=== PATIENT | female | born 1940 | race Caucasian/White ===

== ENCOUNTER 2024-06-20 14:28 | Inpatient (IN) | payer OTHER, SELFPAY ==
[2024-06-20] VITALS (32 sets, daily range): BP systolic 81–174; BP diastolic 30–99; PULSE 2–109; BMI 22.7; BMI 22.3
--- NOTE | 2024-06-20 09:19 | EDRN ---
Olya Madera PA in to see pt at this time.
--- NOTE | 2024-06-20 09:30 | ED.GENMED ---
History of Present Illness
<Av Madera PA-C - Last Filed: 06/20/24 13:44>
General
Chief Complaint: Breathing Problem
Source: patient and ambulance crew
Time Seen by Provider: 06/20/24 09:17
History of Present Illness
History of Present Illness:
83-year-old female with past medical history of atrial fibrillation, valvular disease, known CAD, hypertension, hyperlipidemia, azs-gonrgiz-nryltztvk diabetes and self-reported COPD presenting to the emergency department for evaluation of shortness
of breath which has been gradually worsening over the last few days, worse today prompting her to call EMS who noted the patient was satting at 92% room air on their arrival, placed her on 2 L via nasal cannula and brought her to the ER for further
evaluation. Patient believes she has been going in and out of atrial fibrillation noting she has experienced palpitations but is denying any chest pain, orthopnea, PND, lower extremity edema, cough, fevers or any other infectious symptoms. She
does note she attempted use with her inhaler around 8 AM this morning with no relief. Social history was noted for her passing away earlier this week.
Past History
<Av Madera PA-C - Last Filed: 06/20/24 13:44>
Past History
ED Past Medical History: Arrthythmia, Asthma, CAD, HTN, Hypercholesterolemia, NIDDM and Valvular disease
ED Past Surgical History: Cardiac and Cholecystectomy
Social History
Tobacco: Non-smoker
Alcohol: None
Drug: None
Personal:
Living: alone
Review of Systems
<Av Madera PA-C - Last Filed: 06/20/24 13:44>
Review of Systems
All Other Systems: ROS reviewed and negative except as documented in HPI and ROS
Phy Exam
<Av Madera PA-C - Last Filed: 06/20/24 13:44>
Physical Exam
Physical Exam:
GENERAL: Alert , in no apparent distress
HEAD: NCAT
EYE: conjunctiva clear
NECK: Supple
ENT: o/p clr, mmm.
CARDIAC: Regular rate and rhythm
LUNGS: diminished lung sounds, scattered wheezing, 1 sentence dyspneic. 91% RA on arrival, currently on 2L NC at 96-97%.
NEUROLOGICAL: Alert and oriented
SKIN: Warm and dry, skin intact.
MUSCULOSKELETAL: well perfused. no edema
PSYCH: Normal and appropriate interaction.
Scores
<Av Madera PA-C - Last Filed: 06/20/24 13:44>
Heart Failure Risk
Heart Failure Risk Score: Not Applicable
Heart Score for Chest Pain Patients
STEMI patient?: Not applicable
Withdrawal Assessment of Alcohol
Withdrawal Assessment Completed?: Not applicable
Course
<Av Madera PA-C - Last Filed: 06/20/24 13:44>
Orders/Labs/Results
Orders:
Orders
06/20/24 09:17
Electrocardiogram (*1) Urgent
Reason for Study: Chest Pain
Cardiac Monitoring- Treatment ONCE
EKG- Treatment ONCE
06/20/24 09:26
Ipratropium/Albuterol Sulfate [Duoneb] 3 ml INH R NOW ONE
06/20/24 09:27
CR Chest - 2 Views Urgent
Comment:
Reason For Exam: SOB
06/20/24 09:31
BNP [NT-proBNP] Urgent
Complete Blood Count/With Diff Urgent
Comprehensive Metabolic Panel Urgent
Prothrombin Time Urgent
Troponin I Urgent
06/20/24 09:40
MethylPREDNISolone PF [Solu-Medrol Pf] 40 mg IV NOW STA
06/20/24 10:21
Aspirin Chewable [Low Strength Aspirin] 324 mg PO NOW STA
06/20/24 10:40
COVID-19 Antigen Urgent
Source: Nasal Swab
Influenza A+B Rapid Molecular Urgent
ADDI Source: Nasal Swab
Specimen Description:
06/20/24 10:43
Aztreonam [Azactam] 500 mg Syringe [Syringe-Pump] 0 ml IV NOW
06/20/24 10:59
Lactic Acid Q4H
Comment: CANCEL 2nd LACTIC ACID IF 1st LACTIC ACID IS LESS THAN 2
Blood Culture Q30M
ADDI Source: Blood/Venous
Specimen Description:
06/20/24 11:05
Vancomycin [Vancocin] 1,500 mg 0.9% Sodium Chloride 500 ml [Nss] 500 ml IV NOW
06/20/24 11:19
Aztreonam [Azactam] 500 mg Syringe [Syringe-Pump] 0 ml IV NOW
06/20/24 11:20
Blood Culture Q30M
ADDI Source: Blood/Venous
Specimen Description:
06/20/24 13:26
Admit/Transfer Patient As Directed
Co-Sign Provider:
Level of Care: Inpatient admission
Assign to:: IVU
Physician / Group: Hospitalist
Diagnosis: Heart attack, heart failure, kidney failure
Reason for Hospitalization: Heart attack, heart failure, kidney failure
Expected length of stay greater than two midnights?: Yes
ELOS- Estimated Length of Stay in days: 5
I certify the patient meets the requirements for IP care: Yes
06/20/24 13:27
PRN Pain Medication Management As Directed
May give lesser potent ordered pain med per pt: Yes
preference::
Protocol:: Medication orders for pain may be administered in a
manner that supports deferring to patient preference
when the pt is:
- Requesting an ordered lesser potent pain medication.
Least to most potent pain medications are defined
as: acetaminophen < NSAID < tramadol < opioids
(morphine, oxycodone, hydromorphone).
- Requesting a lesser dose of the same medication IF
ORDERED.
- Requesting a less intrusive route of administration
if both routes are prescribed by the provider (PO <
IV).
06/20/24 13:28
Code Status As Directed
Resuscitation Status: Limited DNR
Limited DNR: -No intubation
06/20/24 13:31
Echo 2D MMode Color/Doppler Stat
Reason for Study: chest pain
06/20/24 13:45
Troponin I Urgent
06/20/24 13:48
Furosemide [Lasix] 40 mg IV NOW STA
06/20/24 13:49
Albuterol Nebs [Ventolin Nebules] 2.5 mg INH R NOW STA
06/20/24 13:53
Bipap [RESP] Urgent
Patient to use own unit?: No
Inspiratory Pressure (cm H2O): 14
Expiratory Pressure (cm H2O): 5
Abnormal Lab Results
06/20/24
09:31
WBC 13.3 H 10^3/uL
(4.8-10.8)
RBC 3.38 L 10^6/uL
(4.20-5.40)
Hgb 9.7 L g/dL
(12.0-16.0)
Hct 29.6 L %
(37.0-47.0)
MCHC 32.8 L g/dL
(33.0-37.0)
MPV 11.0 H fL
(7.4-10.4)
Abs Immat Gran (auto) 0.1 H 10^3/uL
(0-0.05)
Absolute Neuts (auto) 9.4 H 10^3/uL
(1.4-6.5)
Absolute Monos (auto) 0.9 H 10^3/uL
(0.1-0.6)
Lymphocytes % 18.7 L %
(20.5-51.1)
PT 30.0 H Sec
(11.4-14.6)
BUN 50 H mg/dl
(7-17)
Creatinine 1.9 H mg/dL
(0.6-1.0)
Glucose 100 H mg/dl
(70-99)
AST 84 H U/L
(14-36)
ALT 85 H U/L
(0-35)
Alkaline Phosphatase 157 H U/L
(38-126)
Troponin I 1.660 H* ng/ml
06/20/24 09:31
06/20/24 09:31
Vital Signs
Initial and Last Documented VS:
Initial Vital Signs
Temp Pulse Resp BP Pulse Ox
98 F 86 32 174/67 91
06/20/24 09:20 06/20/24 09:20 06/20/24 09:20 06/20/24 09:20 06/20/24 09:20
Last Documented Vital Signs
Temp Pulse Resp BP Pulse Ox
98 F 72 20 126/39 99
06/20/24 09:20 06/20/24 12:00 06/20/24 12:00 06/20/24 12:00 06/20/24 12:00
Aquatics Coordinator consulted with Physician
Aquatics Coordinator consulted with physician?: Yes
Name of Physician Consulted: Danie
<Herman Helton, DO - Last Filed: 06/20/24 14:02>
Orders/Labs/Results
Orders:
Orders
06/20/24 09:17
Electrocardiogram (*1) Urgent
Reason for Study: Chest Pain
Cardiac Monitoring- Treatment ONCE
EKG- Treatment ONCE
06/20/24 09:26
Ipratropium/Albuterol Sulfate [Duoneb] 3 ml INH R NOW ONE
06/20/24 09:27
CR Chest - 2 Views Urgent
Comment:
Reason For Exam: SOB
06/20/24 09:31
BNP [NT-proBNP] Urgent
Complete Blood Count/With Diff Urgent
Comprehensive Metabolic Panel Urgent
Prothrombin Time Urgent
Troponin I Urgent
06/20/24 09:40
MethylPREDNISolone PF [Solu-Medrol Pf] 40 mg IV NOW STA
06/20/24 10:21
Aspirin Chewable [Low Strength Aspirin] 324 mg PO NOW STA
06/20/24 10:40
COVID-19 Antigen Urgent
Source: Nasal Swab
Influenza A+B Rapid Molecular Urgent
ADDI Source: Nasal Swab
Specimen Description:
06/20/24 10:43
Aztreonam [Azactam] 500 mg Syringe [Syringe-Pump] 0 ml IV NOW
06/20/24 10:59
Lactic Acid Q4H
Comment: CANCEL 2nd LACTIC ACID IF 1st LACTIC ACID IS LESS THAN 2
Blood Culture Q30M
ADDI Source: Blood/Venous
Specimen Description:
06/20/24 11:05
Vancomycin [Vancocin] 1,500 mg 0.9% Sodium Chloride 500 ml [Nss] 500 ml IV NOW
06/20/24 11:19
Aztreonam [Azactam] 500 mg Syringe [Syringe-Pump] 0 ml IV NOW
06/20/24 11:20
Blood Culture Q30M
ADDI Source: Blood/Venous
Specimen Description:
06/20/24 13:26
Admit/Transfer Patient As Directed
Co-Sign Provider:
Level of Care: Inpatient admission
Assign to:: IVU
Physician / Group: Hospitalist
Diagnosis: Heart attack, heart failure, kidney failure
Reason for Hospitalization: Heart attack, heart failure, kidney failure
Expected length of stay greater than two midnights?: Yes
ELOS- Estimated Length of Stay in days: 5
I certify the patient meets the requirements for IP care: Yes
06/20/24 13:27
PRN Pain Medication Management As Directed
May give lesser potent ordered pain med per pt: Yes
preference::
Protocol:: Medication orders for pain may be administered in a
manner that supports deferring to patient preference
when the pt is:
- Requesting an ordered lesser potent pain medication.
Least to most potent pain medications are defined
as: acetaminophen < NSAID < tramadol < opioids
(morphine, oxycodone, hydromorphone).
- Requesting a lesser dose of the same medication IF
ORDERED.
- Requesting a less intrusive route of administration
if both routes are prescribed by the provider (PO <
IV).
06/20/24 13:28
Code Status As Directed
Resuscitation Status: Limited DNR
Limited DNR: -No intubation
06/20/24 13:31
Echo 2D MMode Color/Doppler Stat
Reason for Study: chest pain
06/20/24 13:45
Troponin I Urgent
06/20/24 13:48
Furosemide [Lasix] 40 mg IV NOW STA
06/20/24 13:49
Albuterol Nebs [Ventolin Nebules] 2.5 mg INH R NOW STA
06/20/24 13:53
Bipap [RESP] Urgent
Patient to use own unit?: No
Inspiratory Pressure (cm H2O): 14
Expiratory Pressure (cm H2O): 5
Abnormal Lab Results
06/20/24
09:31
WBC 13.3 H 10^3/uL
(4.8-10.8)
RBC 3.38 L 10^6/uL
(4.20-5.40)
Hgb 9.7 L g/dL
(12.0-16.0)
Hct 29.6 L %
(37.0-47.0)
MCHC 32.8 L g/dL
(33.0-37.0)
MPV 11.0 H fL
(7.4-10.4)
Abs Immat Gran (auto) 0.1 H 10^3/uL
(0-0.05)
Absolute Neuts (auto) 9.4 H 10^3/uL
(1.4-6.5)
Absolute Monos (auto) 0.9 H 10^3/uL
(0.1-0.6)
Lymphocytes % 18.7 L %
(20.5-51.1)
PT 30.0 H Sec
(11.4-14.6)
BUN 50 H mg/dl
(7-17)
Creatinine 1.9 H mg/dL
(0.6-1.0)
Glucose 100 H mg/dl
(70-99)
AST 84 H U/L
(14-36)
ALT 85 H U/L
(0-35)
Alkaline Phosphatase 157 H U/L
(38-126)
Troponin I 1.660 H* ng/ml
06/20/24 09:31
06/20/24 09:31
Vital Signs
Initial and Last Documented VS:
Initial Vital Signs
Temp Pulse Resp BP Pulse Ox
98 F 86 32 174/67 91
06/20/24 09:20 06/20/24 09:20 06/20/24 09:20 06/20/24 09:20 06/20/24 09:20
Last Documented Vital Signs
Temp Pulse Resp BP Pulse Ox
98 F 72 20 126/39 99
06/20/24 09:20 06/20/24 12:00 06/20/24 12:00 06/20/24 12:00 06/20/24 12:00
<Av Madera PA-C - Last Filed: 06/20/24 13:44>
MDM/Problems Addressed
Differential Diagnosis Includes:
Asthma/COPD exacerbation, exacerbation of valvular disease, CHF, pneumonia, cardiomyopathy, ACS
MDM/Problems Addressed:
83-year-old female presenting to the ER for evaluation of a few days of worsening shortness of breath, found by EMS toxic on arrival, remains the same in the ER and will leave on 2 L nasal cannula. Scattered wheezing and diminished lung sounds
throughout. Will treat with DuoNeb and Solu-Medrol. I do suspect this is more likely a pulmonary source but given her extensive cardiac history there could also be a component of CHF/ACS or worsening cardiomyopathy/valvular disease. Will check
labs, chest x-ray. Anticipate admission.
Chronic conditions affecting care: Cardiomyopathy, Arrhythmia and COPD
Acute Exacerbation and/or Progression of Chronic Illness: COPD
<Av Madera PA-C - Last Filed: 06/20/24 13:44>
*Radiology
Radiology exam reviewed: preliminary read by ED provider (bilateral pneumonia vs pulmonary edema/pleural effusion)
*Pulse Oximetry
Patient hypoxic: yes
*EKG
Interpreted by ED Provider?: Yes
Heart Rate: 84
Rate: normal
Rhythm: sinus
QRS Pattern: left bundle branch block
*Chief Marketing Officer Interpretation
Rate: normal
Rhythm: sinus
*Critical Care Note
Total Time (30-74mins, 75-104mins- exclusive of procedures): 30
comment:
Critical care statement: A total of 30 minutes of critical care time was provided for this patient. This includes management of unstable vital signs, evaluation of the patient at bedside, reviewing the patient's pertinent medical records, discussion
with consultants, review of old EKGs and review of pertinent medical records. This time with separate from time utilized to perform the aforementioned documented procedures
Data Reviewed
Review of Other/Old Records Reveals: Records and Testing
<Av Madera PA-C - Last Filed: 06/20/24 13:44>
Comment
Comment:
In 2015 patient had cardiac catheterization done due to a left bundle noted on an EKG. This is not a new EKG finding.
Patient Management
Discussion with other providers: Hospitalist and Lieutenant Fire Fighter
Escalation/DeEscalation of care consider admission/obs:
Patient's lab work is significantly abnormal with a leukocytosis of 13,000, anemia with a hemoglobin of 9.7. Patient's chemistry is significantly abnormal with a BUN of 50, creatinine of 1.9, mild transaminitis, troponin greater than 1 and a BNP of
greater than 27,000. Patient's chest x-ray appears to show bilateral pneumonia versus increased pulmonary vasculature/pleural effusion. Patient has cephalosporin allergy so will cover with Azactam and vancomycin. Will defer Lasix to cardiology
and hospitalist team. I did notify cardiology via [facility] text so they can consult. Hospitalist team to admit.
ED Attending Note
<Av Madera PA-C - Last Filed: 06/20/24 13:44>
-
Portions of this chart may have been created with voice recognition software.� Occasional wrong word or��sound alike� substitutions may have occurred due to the inherent limitations of voice recognition software.
<Herman Helton DO - Last Filed: 06/20/24 14:02>
ED Attending Note
Patient seen and examined by attending physician: Yes
I performed the substantive portion of visit, reviewed & personally made and approve the management plan that is documented in note by myself or CEE.: Yes
ED Attending Note:
I have seen and evaluated the patient with a ifpo-ie-nasw encounter. I have spoken to the advance practicer provider and involved in the medical history, the physical exam, medical decision making.
Evaluation and management service: agree unless noted differently below.
Results interpretation: agree unless noted differently below.
Focused HPI: 83-year-old female presenting with shortness of breath. Symptoms have progressed over the past few days. Daughter at bedside states that she has been walking more recently and they have been in and out of the hospital and dealing with
the recent passing of her
Physical exam: Tachypnea, shallow breath sounds, wheezing
Medical Decision Making: Patient initially improving with DuoNebs but is decompensating in the emergency department. Cardiology did evaluate. Will start IV Lasix and Nitropaste and BiPAP with concern for CHF exacerbation
Discharge Plan
Departure
Patient Disposition: Admit
Date of Disposition: 06/20/24
Time of Disposition: 10:26
Presentation/result/management discussed w/ accepting MD/DO: Hospitalist
Discharge Problem:
Acute non-ST elevation myocardial infarction (NSTEMI), JENNIFER (acute kidney injury), CHF (congestive heart failure)
Prescriptions:
No Action
amoxicillin 500 MG capsule
2,000 mg PO PRN PRN (Reason: 1 hr before dental work)
atorvastatin 20 mg Tablet
20 mg PO DAILY
warfarin [Coumadin] 5 mg Tablet
5 mg PO DAILY
metoprolol tartrate 50 mg Tablet
50 mg PO BID
furosemide 20 mg Tablet
20 mg PO BID
albuterol sulfate 90 mcg/actuation Hfa Aerosol Inhaler
2 puff INHALATION R DAILYPRN PRN (Reason: SOB)
fluticasone propionate [Flonase] 50 mcg/actuation [place],Suspension
1 spray INTRANASAL DAILY
PreserVision AREDS 2,148 mcg-113 mg-45 mg-17.4mg Tablet
1 tab PO BID
Referrals:
Ingrid Mir DO [Family Provider] -
Interventions
Interventions:
*Risk Screen - Suicide Last Done: 06/20/24 09:20
*General Assessment Last Done: 06/20/24 09:29
*Neglect/Abuse Screening Last Done: 06/20/24 09:20
*ED- Fall Risk Assessment Last Done: 06/20/24 09:54
*ED COVID-19 Vaccine History Last Done: 06/20/24 09:54
ED- Cardiac Assessment Last Done: 06/20/24 09:45
ED- Pulmonary Assessment Last Done: 06/20/24 09:45
Discharge Date and Time
Print Language: [place]
[2024-06-20] MEDS: DUONEB 3 ML INH (09:39)
--- NOTE | 2024-06-20 09:40 | EDRN ---
HOB up and pt made comfortable to assist in her breathing. Pt was breathing at 40 bpm flat.
[2024-06-20 09:41] LABS: % Basophils 0.7 % (0-2); % Eosinophils 2.6 % (0-6); % Immature Granulocytes 0.4 % (0-0.5); % Lymphocytes 18.7 % (20.5-51.1); % Monocytes 6.8 % (1.7-9.3); % Neutrophils 70.8 % (42.2-75.2); Absolute Basophils 0.1 10^3/uL (0-0.2); Absolute Eosinophils 0.3 10^3/uL (0-0.7); Absolute Immature Granulocytes 0.1 10^3/uL (0-0.05); Absolute Lymphocytes 2.5 10^3/uL (1.2-3.4); Absolute Monocytes 0.9 10^3/uL (0.1-0.6); Absolute Neutrophils 9.4 10^3/uL (1.4-6.5); Hematocrit 29.6 % (37.0-47.0); Hemoglobin 9.7 g/dL (12.0-16.0); Mean Corp Hgb Conc. 32.8 g/dL (33.0-37.0); Mean Corpuscular Hgb 28.7 pg (27.0-31.0); Mean Corpuscular Volume 87.6 fL (81.0-99.0); Nucleated Red Blood Cells % 0 %; Platelet Count 305 10^3/uL (130-400); Red Blood Cell Count 3.38 10^6/uL (4.20-5.40); Red Cell Dist. Width 13.1 % (11.5-14.5); White Blood Cell Count 13.3 10^3/uL (4.8-10.8)
--- NOTE | 2024-06-20 09:48 | EDRN ---
Pharmacy called for solumedrol, not available in pyxis.
[2024-06-20 09:53] LABS: INR 2.86
[2024-06-20] MEDS: SOLU-MEDROL PF 40 MG IV (09:56)
[2024-06-20 10:04] LABS: ALT (SGPT) 85 U/L (0-35); AST (SGOT) 84 U/L (14-36); Albumin 4.3 g/dl (3.5-5.0); Alkaline Phosphatase 157 U/L (38-126); Blood Urea Nitrogen 50 mg/dl (7-17); Calcium 9.2 mg/dl (8.4-10.2); Carbon Dioxide 23 mmol/L (22-30); Chloride 107 mmol/L (98-107); Glucose 100 mg/dl (70-99); Potassium 4.6 mmol/L (3.5-5.1); Sodium 141 mmol/L (135-145); Total Bilirubin 0.8 mg/dl (0.2-1.3); Total Protein 7.4 g/dl (6.3-8.2); eGFR 25.72
[2024-06-20 10:15] LABS: NT-proBNP > 27000 pg/ml
--- NOTE | 2024-06-20 10:19 | EDRN ---
Troponin (1.660) and BNP (>27,000) elevated and Olya SANTIAGO informed.
[2024-06-20 11:04] LABS: COVID-19 Antigen Negative (Negative)
--- NOTE | 2024-06-20 11:05 | EDRN ---
First set of blood cultures drawn and sent w/ lactic.
[2024-06-20] MEDS: LOW STRENGTH ASPIRIN 324 MG PO (11:16)
[2024-06-20 11:24] LABS: Lactic Acid 1.4 mmol/L (0.7-2.0)
[2024-06-20] MEDS: AZACTAM 5 MG IV (11:40)
[2024-06-20] MEDS: VANCOCIN 530 MG IV (11:46)
--- NOTE | 2024-06-20 12:05 | CM ---
CM met with pt and son bedside
Pt is a recent - her spouse two days prior on Thrs 06/18
No impending arrangements at this time
Pt now resides alone in a [place] with 1[place]
She has 4 supportive children, 3 sons and 1 dtr
She is is indep with her ADLs without AD, drives+
Has WW and inhaler for use as needed
PCP- Ingrid Mir
Rx- [facility]
Son/Toi Hewitt is POA and primary contact now [phone]
VM left for admissions with contact update
Discharge Disposition- anticipate home, watch for O2 needs
--- NOTE | 2024-06-20 12:59 | HPS.HSE ---
Family Physician
-
Family Physician: Ingrid Mir
Chief Complaint
-
Shortness of breath
History of Present Illness
83-year-old woman with past medical history of:
atrial fibrillation,
valvular disease,
known CAD,
hypertension,
hyperlipidemia,
zti-fpsmvaz-hqoppkbxe diabetes
self-reported COPD
Comes in for evaluation of shortness of breath which has been gradually worsening over the last few days, worse today. EMS noted the patient was satting at 92% room air on their arrival, and she was placed on 2 L via nasal cannula and brought to the
ER. Patient believes she has been going in and out of atrial fibrillation noting she has experienced palpitations but is denying any chest pain, orthopnea, PND, lower extremity edema, cough, fevers or any other infectious symptoms. She attempted
use with her inhaler around 8 AM this morning with no relief. Her passing away earlier this week. At the time of my interview, she said her breathing was feeling better.
Medical History
Past Medical History
Past Medical History: Reports Other
Additional Past Medical History:
Arrthythmia,
Asthma,
CAD,
essential HTN,
Hypercholesterolemia,
NIDDM
Valvular disease
Cardiac surgery and Cholecystectomy
Past Surgical History: Reports Other
Additional Past Surgical History:
See above
Social History
Tobacco: Non-smoker
Alcohol: None
Drug: None
Personal:
Family History
Family History: Not pertinent
Allergies / Home Medications
Allergies reflects when Allergies were last updated in [facility].
Home Medications with original date entered in [facility]
Allergy/Medication List:
Allergies
Allergy/AdvReac Type Severity Reaction Status Date / Time
cefuroxime Allergy Unknown Verified 06/20/24 09:18
Home Medications
amoxicillin 500 mg capsule 2,000 mg PO PRN PRN 1 hr before dental work 10/29/14
albuterol sulfate 90 mcg/actuation aerosol inhaler 2 puff inhalation R DAILYPRN PRN SOB 06/20/24
atorvastatin 20 mg tablet 20 mg PO DAILY 06/20/24
fluticasone propionate 50 mcg/actuation nasal spray,suspension 1 spray intranasal DAILY 06/20/24
furosemide 20 mg tablet 20 mg PO BID 06/20/24
metoprolol tartrate 50 mg tablet 50 mg PO BID 06/20/24
vitamins A,C,V-hoyv-jtopln 2,148 mcg-113 mg-45 mg-17.4 mg tablet (PreserVision AREDS) 1 tab PO BID 06/20/24
warfarin 5 mg tablet 5 mg PO DAILY 06/20/24
Review of Systems
-
History Source: Patient
A 12 point ROS was completed and negative except as noted: Yes
Physical Exam
Vital Signs
Vital Signs
Temp Pulse Resp BP Pulse Ox
98 F 72 20 126/39 99
06/20/24 09:20 06/20/24 12:00 06/20/24 12:00 06/20/24 12:00 06/20/24 12:00
Physical Exam
General: Well Developed, Well Nourished and No Apparent Distress
HEENT: Nose Appears Normal, Ears Appear Normal and Oxygen
Respiratory: Clear and Decreased Breath Sounds
Cardiac: S1/S2 and Regular Rhythm
GI: Soft, Non Tender and Non Distended
Musculoskeletal: No Clubbing, No Cyanosis and No Edema
Neuro: Awake, Alert and Oriented
Psych: Calm and Depressed
Laboratory Results
-
06/20/24 09:31
06/20/24 09:31
Laboratory Results
PT 30.0 Sec (11.4-14.6) H 06/20/24 09:31
INR 2.86 06/20/24 09:31
Lactic Acid Cancelled 06/20/24 15:00
Total Bilirubin 0.8 mg/dl (0.2-1.3) 06/20/24 09:31
AST 84 U/L (14-36) H 06/20/24 09:31
ALT 85 U/L (0-35) H 06/20/24 09:31
Alkaline Phosphatase 157 U/L (38-126) H 06/20/24 09:31
Troponin I 1.660 ng/ml H* 06/20/24 09:31
Data Reviewed
-
Lab Data: Labs Reviewed by me
Impression/Plan
-
IMPRESSION:
83 woman with SOB and found to have:
WBC 13.3
H/H 9.7/29.6
BUN/Creat 50/1.9
Troponin 1.660
AST/ALT 84/85
BNP 27,000
ECG LEFT BUNDLE BRANCH BLOCK - WHEN COMPARED WITH ECG OF 20-NOV-2005 04:07, LEFT BUNDLE BRANCH BLOCK IS NOW PRESENT
CXR: Findings most consistent with congestive heart failure.
PLAN:
1. 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
Concern for takesubo vs another type of cardiogenic event
Urgent cardiology consult requested
STAT echo ordered
Cycle troponins
Admit to IVU
2. WBC 13.3 - could be stress reaction or PNA given CXR
Covered by abx in ER
Await cardiology consult before deciding on further antibioics
3. Heart failure, EF not known
Order STAT echo
4. H/O Arrthythmia, type not known
Cycle troponin
Admit to telemetry in IVU
5. H/O Asthma, presenting with SOB
Continue home meds
May need IV steroids if not improving
6. CAD, last cath in 2014.
Results of cath:
1: Widely patent CASEY and saphenous vein bypass graft.
It may be that the abnormality noted on stress echo is a false positive related to the left bundle branch block.
The patient does have small vessel disease in the diagonal branches and in the distal posterior descending artery however I would treat this medically.
2: Normal pulmonary pressures.
3: Very mild bioprosthetic aortic stenosis.
7. essential HTN, BP now 120s/30s
Hold BP meds for now
Resume when OK with cardiology
8. Hypercholesterolemia, Chronic
Continue atorvastatin
9. NIDDM
Check FS glucoses
Use insulin if out of control
10. Valvular disease - on coumadin
Continue coumadin unless changed by cardiology
11. H/O Cardiac surgery and Cholecystectomy
Follow
Code: CPR OK, no intubation requested
VCD for DVTp
--- NOTE | 2024-06-20 13:06 | CON.CAR ---
Consultation
Consultation Request
Date/Time Consultation Requested: June 20, 2024
Date/Time Consultation Performed: June 20, 2024
Requesting Provider: Emergency department
Performing Provider: Dr Aj Luna
Reason for Consultation: Shortness of breath, acute congestive heart failure
Medical History
-
Chief Complaint: Progressive shortness of breath over the past 3 days
History of Present Illness:
She presents to the emergency department [facility] [address] brought by family for progressive shortness of breath over the past several days. This prompted an EMS call and then patient was brought to the emergency department. Additionally she has
been experiencing palpitations and she feels that she has been having exacerbations/paroxysms of atrial fibrillation. She denies chest pain. Denies PND and orthopnea. No fevers chills or night sweats. She does have an inhaler for COPD and tried
using her inhaler earlier this morning with no relief.
She does note that she has been under tremendous amount of stress as her earlier this week after a long illness.
On presentation:
ECG finds sinus rhythm at 80 bpm left bundle branch block. (Of note, there is notation that in 2014 she developed 'new LBB' which prompted coronary angiography finding widely patent grafts)
chest x-ray findings are consistent with pulmonary edema/vascular congestion
Laboratory values show proBNP greater than 27,000, troponin is 1.66, BUN 50 and creatinine 1.9
Past medical history:
Primary quality assurance is Dr. Josue Almendarez
Chronic LBBB
There is notation that in 2014 she developed 'new LBB' which prompted coronary angiography finding widely patent grafts
Coronary artery disease with coronary artery bypass grafting surgery November 19, 2005
CASEY to LAD and sequential SVG�OM1/2
Prior aortic valve replacement, bioprosthetic aortic valve
Carotid arterial disease status post prior carotid endarterectomy on the left in 2009.
Type 2 diabetes
Hypertension
Dyslipidemic but noted to be statin intolerant
Social History
Tobacco: Non-Smoker
Alcohol: None
Drug: None
Personal:
Living: Alone
Family History
Family History: Reviewed & Not Pertinent
Allergies / Home Medications
Allergy/AdvReac Type Severity Reaction Status Date / Time
cefuroxime Allergy Unknown Verified 06/20/24 09:18
�Medication �Instructions �Recorded �Confirmed �Type
amoxicillin 500 mg capsule 2,000 mg PO PRN PRN 1 hr before 10/29/14 06/20/24 History
dental work
albuterol sulfate 90 mcg/actuation 2 puff inhalation R DAILYPRN PRN 06/20/24 06/20/24 History
aerosol inhaler SOB
atorvastatin 20 mg tablet 20 mg PO DAILY 06/20/24 06/20/24 History
fluticasone propionate 50 1 spray intranasal DAILY 06/20/24 06/20/24 History
mcg/actuation nasal
spray,suspension
furosemide 20 mg tablet 20 mg PO BID 06/20/24 06/20/24 History
metoprolol tartrate 50 mg tablet 50 mg PO BID 06/20/24 06/20/24 History
vitamins A,C,Y-xayb-hrsxmr 2,148 1 tab PO BID 06/20/24 06/20/24 History
mcg-113 mg-45 mg-17.4 mg tablet
(PreserVision AREDS)
warfarin 5 mg tablet 5 mg PO DAILY 06/20/24 06/20/24 History
Review of Systems
-
History Source: Patient
All other systems: Negative unless noted
Constitutional: Fatigue
EENT: No Symptoms
Respiratory: Trouble Breathing
Cardiac: Palpitations and Other (no CP)
Abdomen/GI: No Symptoms
: No Symptoms
Musculoskeletal: No Symptoms
Skin: No Symptoms
Neurological: No Symptoms
Endocrine: No Symptoms
Hematologic/Lymphatic: No Symptoms
Physical Exam
Vital Signs
Temp Pulse Resp BP Pulse Ox
98 F 72 20 126/39 99
06/20/24 09:20 05/03/25 12:00 06/20/24 12:00 06/20/24 12:00 06/20/24 12:00
Lab Results
06/20/24 09:31
06/20/24 09:31
Troponin I 1.660 ng/ml H* 06/20/24 09:31
Vqq-D-Wipeeoktrbt Pept > 61712 pg/ml 06/20/24 09:31
Physical Exam
General: Well Developed, Well Nourished and Respiratory Distress
HEENT: Normocephalic, Anicteric and Moist Mucous Membranes
Respiratory: Accessory Resp Muscle Use and Other (Poor movement of air, expiratory wheezes throughout.)
Cardiac: S1/S2 (Positive S3, no S4) and Murmur (There is a grade 2/6 apical holosystolic murmur and no rub)
Breast: Deferred by me
GI: Soft, Non Tender, Non Distended and Normal Bowel Sounds
Rectal: Deferred by Provider
Musculoskeletal: No Clubbing, No Cyanosis and No Edema
Skin: Warm and Dry
Neuro: Awake, Alert, Oriented and AO x 3
Hematologic/Lymphatic: No Lymphadenopathy
Psych: Agitated
Impression / Plan
-
Primary quality assurance is Dr. Josue Almendarez
Assessment:
Presents with decompensated congestive heart failure and there may be a component of COPD exacerbation
Elevated troponin
History of COPD
Chronic LBBB
There is notation that in 2015 she developed 'new LBB' which prompted coronary angiography finding widely patent grafts
Coronary artery disease with coronary artery bypass grafting surgery November 19, 2005
CASEY to LAD and sequential SVG�OM1/2
Prior aortic valve replacement, bioprosthetic aortic valve
Carotid arterial disease status post prior carotid endarterectomy on the left in 2009.
Type 2 diabetes
Hypertension
Dyslipidemic but noted to be statin intolerant
Recommendations:
Decompensated congestive heart failure remote history of normal LVEF.
- IV Lasix 40 mg now
- Nitroglycerin paste to assess both LV function as well as tissue aortic valve function
- Check echocardiogram today to assess both LV function as well as tissue aortic valve function
Troponin elevation
- ECG with left bundle branch block which is chronic as this was present in 2014
- She has known CAD with prior CABG so troponin elevation is certainly concerning but in this scenario likely non-RI related and likely related to decompensated heart failure and COPD exacerbation
- Checking urgent echo today to assess for LV wall motion abnormality
- Trend troponin and ECGs
Chronic obstructive pulmonary disease
- She also appears to be having an exacerbation of COPD
- Some symptoms improved with nebulizer treatment in the emergency room today
- I have asked the emergency department to initiate BiPAP
- Further evaluation and management as per primary service and possibly pulmonary
Discussed with patient, her daughter at the bedside, emergency department nursing and emergency department physician portfolio assistant managing the case
Total time spent today was 76 minutes in preparing to see the patient, seeing the patient and coordination of care. This included review of recent laboratory evaluations, cardiact testing, imaging studies, primary care rtecords, specialty
consultations, hospital records, as well as personally interviewing and examining the patient, which included discussion of their tests, review/ordering medications, and communicating with other healthcare professionals and also treatment planning
as well as counseling.
Data Reviewed
-
EKG: Tracing Personally Visualized and interpreted
Radiology: Image Personally Visualized and interpreted
Medical Tests (Nuc Med, Echo etc): Report Reviewed by me
Labs: Labs Reviewed by me, Discussed with Physician, Discussed with Nurse, Discussed with Patient and Discussed with Family
Old Records: Reviewed
--- NOTE | 2024-06-20 13:30 | EDRN ---
Pt breathing lightly at this time and stated is comfortable. Pt attempting to nap. Son in room w/ pt.
--- NOTE | 2024-06-20 13:40 | EDRN ---
Pt placed on purewyck at this time as has to void.
--- NOTE | 2024-06-20 13:50 | EDRN ---
Dr. Luna (King) in to see pt w/ lasix and a venotlin neb ordered. Pt in resp distress again at this time.
--- NOTE | 2024-06-20 13:55 | EDRN ---
Pt hot and uncomfortable, breathing in the 30's, increased work of breathing. POX again in high 80s to low 90's.
[2024-06-20] MEDS: LASIX 40 MG IV ×2 (14:00→20:30)
--- NOTE | 2024-06-20 14:00 | EDRN ---
Dr. Helton in room to see pt.
[2024-06-20] MEDS: VENTOLIN NEBULES 2.5 MG INH (14:05)
--- NOTE | 2024-06-20 14:05 | EDRN ---
Pt placed on Bipap at this time by resp therapist walter/ michelle neb treatment attached at 12/5 and 10 lpm.
--- NOTE | 2024-06-20 14:10 | EDRN ---
Fan brought to room for pt comfort and adjusted toward pt. Echocardiogram now being performed at stretcher side. Daughter in room w/ pt.
--- NOTE | 2024-06-20 14:26 | EDRN ---
The following TT in concern for pt status was sent to Dr. Brown at this time: Dr. Brown. Pt was fine for me and you well in 10 minutes she became, hot, sweaty, tachypneic w/ rate over 30, POX donw again to hi 80's and low 90's when meat butcher
walked into room. Pt has had lasix, duoneb in line of newly started ventolin treatment. ANY change in status like ICU. Please advise as pt did this earlier and it was one second she was okay and next her resp status was terrible. Please advise. with
a follow up that NTG drip is being started.
--- NOTE | 2024-06-20 14:30 | CON.INTV ---
Consultation
Consultation Request
Date/Time Consultation Requested: 06/20/2024
Date/Time Consultation Performed: 06/20/2024
Requesting Provider: Dr. Brown
Performing Provider: Dr. Messer
Reason for Consultation: SOB/continuous BiPAP
Medical History
-
Chief Complaint: SOB
History of Present Illness:
83-year-old female with a past medical history of A-fib currently in NSR, valvular heart disease, CAD, hypertension, hyperlipidemia, DM type II, and history of COPD/asthma who arrives with SOB X 3 days. Patient recently lost her spouse 3 days ago
and she has been neglectful of her health. She has a history of A-fib. She has been more short of breath lately. She is followed by [facility]. She has an inhaler at home and tried to use it (albuterol) but this led to no
relief. In the ER she was afebrile to 98 �F, pulse rate 86, tachypneic to 32 breaths/min, hypertensive to 174/67, and saturating 91% on room air which improved to 97% on 2 L/min. She was eventually transition to BiPAP due to continued tachypnea.
Labs showed WBC 13.3, Hb 9.7, absolute eosinophil count 300, INR 2.6 (she is on Coumadin), creatinine 1.9, serum bicarbonate 23, troponin initially 1.66, LFTs elevated with AST 84, ALT 85, and T. bili WNL at 0.8, and proBNP >27,000. COVID-19
antigen negative. Flu swab A/P was negative, and blood cultures were collected. CXR shows acute congestive heart failure. She was given albuterol in the ER, aspirin, 40 mg IV Lasix, DuoNebs, 40 mg Solu-Medrol, and vancomycin. Due to her
continued tachypnea and hypertensive crisis initially on nitroglycerin drip, patient admitted to the ICU with natural developer services consulted for additional management/recommendations.
When I saw the patient, she was on BiPAP 12/5 cmH2O bled with 2L/min with VTe 410 cc. Her son, Toi (ZACHERY), and [id number], Cristina, both present at bedside. Patient is lethargic but easily arousable to voice and is following commands. She
appears fatigued. Currently, heart rate 85 and she is in NSR, SpO2 94% and BP 138/49 on Levophed at 2 mcg/min. All of the family's questions were answered to their satisfaction.
PMHx: A-fib on Coumadin, valvular heart disease, CAD, hypertension, hyperlipidemia (statin intolerant), DM type II, reported history of COPD/asthma
PSHx: Cholecystectomy, carotid endarterectomy (left � 2009), CABG x 2 (CASEY to LAD and sequential SVG�OM1/2)
Past Medical History
Past Medical History: Other (Above as per HPI)
Past Surgical History: Other (Above as per HPI)
Social History
Tobacco: Non-smoker
Alcohol: None
Drug: None
Personal:
Family History
Family History: Reviewed & Not Pertinent
Allergies / Home Medications
Allergies
Allergy/AdvReac Type Severity Reaction Status Date / Time
cefuroxime Allergy Unknown Verified 06/20/24 09:18
Home Medications
�Medication �Instructions �Recorded �Confirmed �Last Taken �Type
amoxicillin 500 mg capsule 2,000 mg PO PRN PRN 1 hr before 10/29/14 06/20/24 Unknown History
dental work
albuterol sulfate 90 mcg/actuation 2 puff inhalation R DAILYPRN PRN 06/20/24 06/20/24 06/20/24 08:00 History
aerosol inhaler SOB
atorvastatin 20 mg tablet 20 mg PO DAILY 06/20/24 06/20/24 06/19/24 History
fluticasone propionate 50 1 spray intranasal DAILY 06/20/24 06/20/24 Unknown History
mcg/actuation nasal
spray,suspension
furosemide 20 mg tablet 20 mg PO BID 06/20/24 06/20/24 06/19/24 History
metoprolol tartrate 50 mg tablet 50 mg PO BID 06/20/24 06/20/24 06/19/24 History
vitamins A,C,U-ocrt-mhbxmo 2,148 1 tab PO BID 06/20/24 06/20/24 06/19/24 History
mcg-113 mg-45 mg-17.4 mg tablet
(PreserVision AREDS)
warfarin 5 mg tablet 5 mg PO DAILY 06/20/24 06/20/24 06/19/24 History
Review of Systems
-
Unable to Obtain full review of systems at this time due to: Acuity
Vitals / Labs / Diagnostic Testing
Vital Signs
Temp Pulse Resp BP Pulse Ox
99.8 F 79 14 109/41 95
06/20/24 19:22 06/20/24 21:45 06/20/24 21:45 06/20/24 21:32 06/20/24 21:45
Lab Data
06/20/24 09:31
06/20/24 09:31
Laboratory Results
06/20/24 06/20/24
09:31 15:12
PT 30.0 H
INR 2.86
pH 7.25 L
pCO2 38 H
pO2 142 H
HCO3 16.7 L
O2 Delivery Level
Microbiology
06/20/24 10:40 Nasal Swab Influenza Types A & B (FELECIA) - Final
Negative for Influenza A & B, NAAT
Negative results must be combined with clinical observations
and patient history.
Nucleic Acid Amplification test (NAAT)performed on the
[employer] platform.
Diagnostic Testing:
Physical Exam
-
HEENT: Normocephalic, Anicteric and Other (Fullface mask on with good seal)
Cardiovascular: S1/S2, Regular Rhythm, Murmur (BRIAN heard across precordium) and Peripheral Edema (negative)
Respiratory: Wheeze (negative), Rales (Bilateral), Rhonchi (negative), Non-Labored Respirations and Other (On BiPAP via full facemask with good seal)
GI: Soft, Non Distended, Non Tender and Normal Bowel Sounds
Neurology: Tremors (negative) and Other (Lethargic, although responds to her name but then quickly falls back asleep)
Skin: Warm and Dry
General: Respiratory Distress (negative), Comfortable, Fever (negative) and Chills (negative)
Assessment
-
Assessment: 83-year-old female with a past medical history of A-fib currently in NSR, valvular heart disease, CAD, hypertension, hyperlipidemia, DM type II, and history of COPD/asthma who arrives with SOB X 3 days. Patient recently lost her spouse
3 days ago and she has been neglectful of her health. She has a history of A-fib. She has been more short of breath lately. She is followed by [facility]. She has an inhaler at home and tried to use it (albuterol) but this
led to no relief. In the ER she was afebrile to 98 �F, pulse rate 86, tachypneic to 32 breaths/min, hypertensive to 174/67, and saturating 91% on room air which improved to 97% on 2 L/min. She was eventually transition to BiPAP due to continued
tachypnea. Labs showed WBC 13.3, Hb 9.7, absolute eosinophil count 300, INR 2.6 (she is on Coumadin), creatinine 1.9, serum bicarbonate 23, troponin initially 1.66, LFTs elevated with AST 84, ALT 85, and T. bili WNL at 0.8, and proBNP >27,000.
COVID-19 antigen negative. Flu swab A/P was negative, and blood cultures were collected. CXR shows acute congestive heart failure. She was given albuterol in the ER, aspirin, 40 mg IV Lasix, DuoNebs, 40 mg Solu-Medrol, and vancomycin. Due to her
continued tachypnea and hypertensive crisis initially on nitroglycerin drip, patient admitted to the ICU with natural developer services consulted for additional management/recommendations.
Chronic conditions [employer] SUPER[employer]: A-fib on Coumadin, valvular heart disease, CAD, hypertension, hyperlipidemia, DM type II, reported history of COPD/asthma
Impression:
#Acute decompensated heart failure with rapid A-fib
#Acute respiratory failure with hypoxia now on continuous BiPAP
#Hypertensive crisis requiring nitroglycerin drip c/b hypotension --> now off nitroglycerin drip and on Levophed
#Circulatory shock now on Levophed
#Leukocytosis
#Acute metabolic acidosis due to JENNIFER with mild acute respiratory alkalosis (she is a chronic CO retainer - unclear baseline pCO2 though)
#Anemia
#Chronic anticoagulation use with Coumadin with INR appropriately elevated
#JENNIFER (unknown baseline)
#Transaminitis
#Elevated troponin
#Reported history of COPD/asthma, not currently wheezing
#Grieving due to recent loss of her 3 days prior to arrival
Plan:
- Patient found to be in acute decompensated heart failure with bilateral interstitial edema, bilateral pleural effusions with right pleural effusion tracking across lateral right lower lobe + right upper lobe
- Continue with Levophed to maintain MAP >65, and aim for higher MAP towards 70�75 if possible to help perfuse kidneys and to allow more room for diuresis
- Start 40 mg IV Lasix BID, holding for hypokalemia or hypotension
- Obtain medical records from outpatient electro optics engineer ([facility])
- Replete electrolytes with K>4, Mg>2
- Recheck CXR tomorrow to assess for improvement in her volume overload
- Trend BNP
- Check echo (unless we can find a recent one from her outpatient electro optics engineer)
- Cardiology on board - recs appreciated
- Continue to trend troponin until it peaks
- Continuous BiPAP for now while she remains severely tachypneic
- Titrate SpO2 to >88% (she reportedly has a history of COPD)
- prn nebulized bronchodilators - not currently bronchospastic
- If mentation improves and she would like a break from the BiPAP, can transition to nasal cannula versus high flow nasal cannula, and continue with BiPAP with sleep
- After reviewing her blood gas, her pCO2 is 38 but pH is only 7.5 with a serum bicarbonate at 23 � this suggests she is a chronic CO2 retainer
- Recheck blood gas tonight and again tomorrow AM to continue trending pH + pCO2
- keep NPO until mentation and tachypnea improve
- Patient given antibiotics in the ER however she appears nontoxic; continue to trend WBC monitor for fevers
- Follow-up blood cultures x 2 (NGTD)
- When she is off BiPAP, if she can produce a decent sputum sample, then send off a sputum culture
- If she spikes a fever overnight then start empiric antibiotics
- Maintain euglycemia with goal BG 140-180; check A1C
- Trend H/H and transfuse if needed to keep Hb>7g/dL; keep plt>20k, unless there is concern for bleeding then keep plt>50k
- DVT ppx: continue coumadin as long as she can safely take PO meds otherwise will need to bridge with heparin gtt
Continue ICU level care for this critically ill patient
Critical care statement: A total of 40 minutes of critical care time was provided for this patient today. This includes management of unstable vital signs, evaluation of the patient at bedside, reviewing the patient's pertinent medical records
including radiographs, microbiology, laboratory evaluations, and discussion with primary team, consultants, pharmacy, nutrition, physical therapy, case management, charge nurse, critical care nursing, and respiratory therapy.
Data:
CXR 06/20/2024: Findings most consistent with congestive heart failure.
[2024-06-20] MEDS: NITROGLYCERIN PREMIX 250 IV (14:39)
--- NOTE | 2024-06-20 15:04 | EDRN ---
Report called to Sharlene ARSHAD in ICU at this time.
[2024-06-20 15:20] LABS: B.E. -9.8 mmol/L; HCO3 16.7 mmol/L (21-28); O2 Saturation % 99.9 % (94-98); PCO2 38 mmHg (32-35); PO2 142 mmHg (83-108); pH 7.25 (7.35-7.45)
[2024-06-20] MEDS: LEVOPHED 250 IV (16:26)
--- NOTE | 2024-06-20 17:55 | PTCARENOTE ---
Received pt from ED via stretcher.Pt was drowsy,but now more awake.Oriented.Speech is appropriate.+HARTLEY.Denies pain.SR with BBB noted.Received pt with Ntg gtt at 5mcg/min.Discontinued as per MD order for BP 82/33.Levophed 2 mcg initiated as
ordered.Decreased breath sounds throughout with bibasilar crackles.+ tachypnea and orthopnea noted.NPO.No BM.Voiding yellow urine via Purewick.Bladder scan 286 ml.Pt's son and daughter at bedside.Plan of care discussed.
[2024-06-20] MEDS: COUMADIN 5 MG PO (18:17)
[2024-06-20 23:52] LABS: Venous Blood Gas B.E. -7.6 mmol/L (-4 to +4); Venous Blood Gas HCO3 17.1 mmol/L (22-27); Venous Blood Gas O2 Sat % 99.8 %; Venous Blood Gas pCO2 31 mmHg (35-48); Venous Blood Gas pH 7.35 (7.32-7.43); Venous Blood Gas pO2 179 mmHg (30-50)
[2024-06-21] VITALS (75 sets, daily range): BP systolic 54–148; BP diastolic 35–106; PULSE 2–84; BMI 22.1
--- NOTE | 2024-06-21 01:15 | PTCARENOTE ---
Pt Aox3, denies pain, c/o burning in her chest which is what she came in with and has not changed in nature. Trops trending down. ekg stable. VBG completed. Levo off at 2300, MAP >65. Q2 turns. pt offers no other complaints at this time.
[2024-06-21 04:23] LABS: Venous Blood Gas B.E. -6.7 mmol/L (-4 to +4); Venous Blood Gas HCO3 18.2 mmol/L (22-27); Venous Blood Gas O2 Sat % 99.4 %; Venous Blood Gas pCO2 33 mmHg (35-48); Venous Blood Gas pH 7.35 (7.32-7.43); Venous Blood Gas pO2 152 mmHg (30-50)
[2024-06-21 04:54] LABS: Hematocrit 24.5 % (37.0-47.0); Hemoglobin 8.2 g/dL (12.0-16.0); Mean Corp Hgb Conc. 33.5 g/dL (33.0-37.0); Mean Corpuscular Hgb 29.1 pg (27.0-31.0); Mean Corpuscular Volume 86.9 fL (81.0-99.0); Mean Platelet Volume 11.2 fL (7.4-10.4); Platelet Count 264 10^3/uL (130-400); Red Blood Cell Count 2.82 10^6/uL (4.20-5.40); White Blood Cell Count 20.9 10^3/uL (4.8-10.8)
[2024-06-21 05:19] LABS: ALT (SGPT) 265 U/L (0-35); AST (SGOT) 193 U/L (14-36); Albumin 3.3 g/dl (3.5-5.0); Alkaline Phosphatase 134 U/L (38-126); Blood Urea Nitrogen 63 mg/dl (7-17); Calcium 9.2 mg/dl (8.4-10.2); Carbon Dioxide 20 mmol/L (22-30); Chloride 107 mmol/L (98-107); Estimated Creatinine Clearance 18 ml/min; Glucose 174 mg/dl (70-99); Magnesium 2.2 mg/dl (1.6-2.3); Potassium 4.8 mmol/L (3.5-5.1); Sodium 139 mmol/L (135-145); Total Bilirubin 0.6 mg/dl (0.2-1.3); Total Protein 6.2 g/dl (6.3-8.2); eGFR 21.57
--- NOTE | 2024-06-21 08:00 | PTCARENOTE ---
Received pt sleeping.Awakens to voice.Speech is appropriate.+HARTLEY.SR noted.Levophed at 1 mcg.Pt tolerating BiPAP 01/22.Decreased breath sounds with bibasilar crackles noted.NPO.No BM.Voiding via PureWick.Skin integrity as documented.Plan of care
discussed with pt.
--- NOTE | 2024-06-21 08:16 | W.PN.INTV ---
Today's Communication / Plan
Recommendations
Aggressive diuresis
Off Levophed since this morning
Continue Coumadin but reduce dose to 4 mg daily given INR >3 today
Continue to trend INR daily with goal 2�3
Replete K>4, Mg>2
OOB as tolerated
Okay for cardiac diet today given that she is no longer tachypneic off BiPAP and is awake, alert and oriented
Cardiology recs appreciated
Patient is stable for downgrade out of ICU to IMU. Pulmonary service will continue to follow along.
Assessment
-
Assessment: 83-year-old female with a past medical history of A-fib currently in NSR, valvular heart disease, CAD, hypertension, hyperlipidemia, DM type II, and history of COPD/asthma who arrives with SOB X 3 days. Patient recently lost her spouse
3 days ago and she has been neglectful of her health. She has a history of A-fib. She has been more short of breath lately. She is followed [facility]. She has an inhaler at home and tried to use it (albuterol) but this
led to no relief. In the ER she was afebrile to 98 �F, pulse rate 86, tachypneic to 32 breaths/min, hypertensive to 174/67, and saturating 91% on room air which improved to 97% on 2 L/min. She was eventually transition to BiPAP due to continued
tachypnea. Labs showed WBC 13.3, Hb 9.7, absolute eosinophil count 300, INR 2.6 (she is on Coumadin), creatinine 1.9, serum bicarbonate 23, troponin initially 1.66, LFTs elevated with AST 84, ALT 85, and T. bili WNL at 0.8, and proBNP >27,000.
COVID-19 antigen negative. Flu swab A/P was negative, and blood cultures were collected. CXR shows acute congestive heart failure. She was given albuterol in the ER, aspirin, 40 mg IV Lasix, DuoNebs, 40 mg Solu-Medrol, and vancomycin. Due to her
continued tachypnea and hypertensive crisis initially on nitroglycerin drip, patient admitted to the ICU with personal injury paralegal services consulted for additional management/recommendations.
Chronic conditions ASSIGNMENT DESK EDITOR: A-fib on Coumadin, valvular heart disease, CAD, hypertension, hyperlipidemia, DM type II, reported history of COPD/asthma
Impression:
#Acute decompensated heart failure/acute HFrEF with rapid A-fib now in NSR as of 06/20
#Acute respiratory failure with hypoxia requiring continuous BiPAP now off BiPAP and on room air
#Hypertensive crisis requiring nitroglycerin drip c/b hypotension --> nitroglycerin drip stopped and Levophed started - now off as of this AM
#Circulatory shock now on Levophed - now resolved as of this AM (06/21)
#Leukocytosis
#Acute metabolic acidosis due to JENNIFER with mild acute respiratory alkalosis (she is a chronic CO retainer - unclear baseline pCO2 though)
#Anemia
#Chronic anticoagulation use with Coumadin with INR appropriately elevated
#JENNIFER (unknown baseline)
#Transaminitis
#Elevated troponin (peaked at 1.660 on 06/20/2024)
#Reported history of COPD/asthma, not currently wheezing
#Grieving due to recent loss of her 3 days prior to arrival
Plan:
- Patient found to be in acute decompensated heart failure with bilateral interstitial edema, bilateral pleural effusions with right pleural effusion tracking across lateral right lower lobe + right upper lobe
- No longer on Levophed as of this AM on 06/21; maintain MAP >65, and aim for higher MAP towards 70�75 if possible to help perfuse kidneys and to allow more room for diuresis
- On 06/21, Dr. Messer started 40 mg IV Lasix BID, holding for hypokalemia or hypotension
- Obtain medical records from outpatient communications lead ([facility])
- Replete electrolytes with K>4, Mg>2
- Repeat CXR today (06/21) shows improvement in volume overload
- Trend BNP
- Echo results from 06/20/2024 reviewed (see details below)
- Cardiology on board - recs appreciated
- Troponin peaked at 1.660 on 06/20/2024 - no longer need to continue trending at this time
- Removed from BiPAP this AM on 06/21; would resume BiPAP during sleep or prn during the day for tachypnea
- Titrate SpO2 to >88% (she reportedly has a history of COPD)
- prn nebulized bronchodilators - not currently bronchospastic
- After reviewing her blood gas on 06/20/2024, her pCO2 was 38 but pH was only 7.25 with a serum bicarbonate at 23 � this suggests she is a chronic CO2 retainer
- Continue trending pH + pCO2
- Patient given antibiotics in the ER however she appears nontoxic; continue to trend WBC monitor for fevers
- Follow-up blood cultures x 2 (NGTD)
- When she is off BiPAP, if she can produce a decent sputum sample, then send off a sputum culture
- If she spikes a fever overnight then start empiric antibiotics
- Maintain euglycemia with goal BG 140-180; HbA1c: 6 - 06/20/2024
- Trend H/H and transfuse if needed to keep Hb>7g/dL; keep plt>20k, unless there is concern for bleeding then keep plt>50k
- DVT ppx: continue coumadin (goal INR 2-3) - lower dose to 4mg given her INR today is 3.56
Patient is stable for downgrade out of ICU to IMU. Pulmonary service will continue to follow along.
Data:
CXR 06/20/2024: Findings most consistent with congestive heart failure.
Echocardiogram June 20, 2024: Globally and severely reduced left ventricular systolic function with ejection fraction of 30 to 35%. There is mild to moderate mitral regurgitation. Tissue aortic valve mean gradient of 4 mmHg with mild aortic
insufficiency. There is moderate tricuspid regurgitation. There is markedly elevated estimated pulmonary artery pressure at 65 to 70 mmHg.
Total time spent today was 57 minutes for this encounter. Time includes reviewing laboratory test/imaging results, reviewing pertinent medical records, obtaining and reviewing medical history, performing an appropriate exam, ordering medications,
tests and procedures. Time also includes documentation of this encounter, coordinating patient care and communicating with other healthcare professionals. Total time does not include separately billed tests performed on this date of service.
Subjective Dataa
Subjective Data
Date of Service:
Date of Service: June 21, 2024
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
Subjective:
Patient was seen and evaluated today bedside. Wore BiPAP all night on 12/5 cmH2O with no supplemental oxygen bled into BiPAP. She was taken off BiPAP this morning to give her a break. She appears in no acute distress and is breathing comfortably
on room air. Multiple family was at bedside and all questions were answered. Heart rate 76, BP 115/56 and saturating 96% on room air. Patient feels good but still short of breath with exertion and appears tired.
Review of Systems
General: Other (Negative unless mentioned above)
Objective Data
Data Reviewed
Vital Signs / I&O / Oxygen:
Vital Signs
Temp Pulse Resp BP Pulse Ox
98.5 F 77 19 136/50 97
06/21/24 07:20 06/21/24 06:00 06/21/24 06:00 06/21/24 06:00 06/21/24 06:00
Intake and Output
06/20/24 06/21/24 06/22/24
06:59 06:59 06:59
Intake Total 72.1 / 72.1
Output Total 500 / 500
Balance -427.9 / -427.9
SaO2 97
Nasal Cannula flow liters per 4
minute
Physical Exam
General: Respiratory Distress (negative), Comfortable, Chills (negative), Sweats (negative) and Other (Elderly female in NAD, appears depressed/deconditioned)
HEENT: Normocephalic and Anicteric
Cardiovascular: S1-S2 and Peripheral Edema (negative)
Respiratory: Wheeze (negative), Crackles (Bilaterally), Rhonchi (negative) and Non-Labored Respirations
GI: Soft, Non Distended, Non Tender and Normal Bowel Sounds
Neurology: Awake, Alert, Oriented and Tremors (negative)
Skin: Warm, Dry, Cyanosis (negative) and Jaundice (negative)
Labs/Micro/Reports
Lab Data
06/21/24 04:15
06/21/24 04:15
Laboratory Results
06/20/24 06/21/24 06/21/24
15:12 06:00 09:38
PT 35.3 H
INR 3.56
pH 7.25 L Cancelled
pCO2 38 H Cancelled
pO2 142 H Cancelled
HCO3 16.7 L Cancelled
O2 Delivery Level Cancelled
Microbiology
06/20/24 10:40 Nasal Swab Influenza Types A & B (FELECIA) - Final
Negative for Influenza A & B, NAAT
Negative results must be combined with clinical observations
and patient history.
Nucleic Acid Amplification test (NAAT)performed on the
[employer] platform.
--- NOTE | 2024-06-21 08:26 | W.PN.HOSP.TC ---
Today's Communication/Plan
-
Still acutely sick. Hopefully can be weaned off bipap today since lungs look better in CXR.
Assessment / Plan
Assessment / Plan
83 woman with SOB and found to have:
06/20/24 06/21/24
WBC 13.3 20.9
H/H 9.7/29.6 8.2/24.5
BUN/Creat 50/1.9 63/2.2
Troponin 1.660 1.120
AST/ALT 84/85 193/265
BNP 27,000
ECG LEFT BBB Left BBB
CXR: CHF Improved CHF
PLAN:
1. Troponin initially of 1.660, with heart failure, LBBB and recent catastrophic emotional event, now complicated by low BP
Also Complicated by h/o CAD, h/o bioprosthetic valve on coumadin (initial INR 1.9)
Concern for takesubo vs another type of cardiogenic event
cardiology consult appreciated, their assessment & recommendations:
Decompensated congestive heart failure remote history of normal LVEF.
- IV Lasix 40 mg
- Nitroglycerin paste
- Check echocardiogram
Troponin elevation
- ECG with left bundle branch block (present in 2014)
known CAD with prior CABG so troponin elevation likely non-OR related
- Trend troponin and ECGs
Chronic obstructive pulmonary disease
- appears to be having an exacerbation of COPD
- initiate BiPAP
For low BP, she is now on levophed
Weaning of levophed per door fitter team
For Transaminitis (worsening), this may be from disturbed circulation
Check daily to see trend
2. WBC 13.3 - could be stress reaction or PNA, worse today at 20.9 (but she received IV steroids)
Covered by abx in ER
Obtain sputum
Further antibiotics for possible PNA at discretion of Glaze Sprayer
Currently on vanco and aztreonam
3. Heart failure, EF not known, with respiratory failure. lungs appear less congested this am, still on bipap
Ordered STAT echo
Results pending
Diuresis per domestic helper team
On IV lasix
On Bipap - to be weaned off by pulmonary team
4. H/O Arrhythmia, type not known
Cycle troponin
Monitor on telemetry in ICU
5. H/O Asthma, presenting with SOB
Continue home asthma/COPD meds
Receiving IV steroids
Continue IV steroids
6. CAD, last cath in 2014.
Results of cath:
1: Widely patent CASEY and saphenous vein bypass graft.
It may be that the abnormality noted on stress echo is a false positive related to the left bundle branch block.
The patient does have small vessel disease in the diagonal branches and in the distal posterior descending artery however I would treat this medically.
2: Normal pulmonary pressures.
3: Very mild bioprosthetic aortic stenosis.
7. Essential HTN, with labile range in hospital
Hold BP meds for now
Resume when OK with cardiology, and when off pressors
8. Hypercholesterolemia, Chronic
Continue atorvastatin
9. NIDDM
Check FS glucoses
Use insulin if out of control
10. Valvular disease - on coumadin
Continue coumadin unless changed by cardiology
11. H/O Cardiac surgery and Cholecystectomy
Follow
12. Chronic anticoagulation
Check INR daily
Adjust coumadin dosage as needed
13. Grieving from recent loss of her
Outpatient therapy upon discharge
Code: CPR OK, no intubation requested
VCD for DVTp
Anticipated Discharge: > 48 hours
Subjective/Interval History
-
Date of Service: June 21, 2024
Objective Data
-
Labs:
Laboratory Results
06/21/24 06/21/24
04:15 06:00
WBC 20.9 H
Hgb 8.2 L
Hct 24.5 L
Plt Count 264
HCO3 Cancelled
Sodium 139
Potassium 4.8
Chloride 107
Carbon Dioxide 20 L
BUN 63 H
Creatinine 2.2 H
Glucose 174 H
Calcium 9.2
Total Bilirubin 0.6
AST 193 H
ALT 265 H
Alkaline Phosphatase 134 H
Vital Signs:
Vital Signs
Temp Pulse Resp BP Pulse Ox
98.5 F 77 19 136/50 97
06/21/24 07:20 06/21/24 06:00 06/21/24 06:00 06/21/24 06:00 06/21/24 06:00
I&O
06/20/24 06/21/24 06/22/24
06:59 06:59 06:59
Intake Total 72.1 / 72.1
Output Total 500 / 500
Balance -427.9 / -427.9
[2024-06-21] MEDS: LASIX 40 MG IV ×2 (08:30→16:15)
[2024-06-21] MEDS: LIPITOR 20 MG PO (08:43)
--- NOTE | 2024-06-21 09:39 | W.PN.CARDCBS ---
Today's Communication / Plan
-
Critically ill but clinically improving with improvement in vascular congestion on chest x-ray and also improving oxygenation and breathing pattern.
Continue IV Lasix diuresis today
Eventually initiate and uptitrate guideline directed medical therapy for heart failure with reduced ejection fraction as tolerated
We will need most recent records from [facility]
Impression / Plan
-
Primary insole and outsole preparer is Dr. Josue Almendarez
Assessment:
Presents with decompensated congestive heart failure and there may be a component of COPD exacerbation
Elevated troponin
History of COPD
Chronic LBBB
There is notation that in 2014 she developed 'new LBB' which prompted coronary angiography finding widely patent grafts
Coronary artery disease with coronary artery bypass grafting surgery November 19, 2005
CASEY to LAD and sequential SVG�OM1/2
Prior aortic valve replacement, bioprosthetic aortic valve
Carotid arterial disease status post prior carotid endarterectomy on the left in 2009.
Type 2 diabetes
Hypertension
Dyslipidemic but noted to be statin intolerant
Echocardiogram June 20, 2024: Globally and severely reduced left ventricular systolic function with ejection fraction of 30 to 35%. There is mild to moderate mitral regurgitation. Tissue aortic valve mean gradient of 4 mmHg with mild aortic
insufficiency. There is moderate tricuspid regurgitation. There is markedly elevated estimated pulmonary artery pressure at 65 to 70 mmHg.
Recommendations:
Decompensated congestive heart failure remote history of normal LVEF. Echocardiogram from June 20, 2024 on day of presentation now shows global LV systolic dysfunction
She has heart failure with reduced ejection fraction, possibly a new diagnosis but we do not have any recent cardiology records (follows routinely at [facility])
- Received 40 mg of intravenous Lasix on presentation in the emergency department and now on Lasix 40 mg IV twice daily
Chest x-ray this morning is improved with reduced pulmonary vascular congestion
Creatinine is elevated, but she also became hypotensive yesterday and has required IV pressors (now off pressors). Mg 2.2 and K 4.8. Would keep Mg between 2 and 3 and K between 4 and 5
Still volume overloaded so would continue with IV Lasix diuresis
Troponin elevation, likely non-SD troponin elevation related to decompensated heart failure and severe COPD exacerbation
- ECG with left bundle branch block which is chronic as this was present in 2014
- She has known CAD with prior CABG so troponin elevation is certainly concerning but in this scenario likely non-SD related and likely related to decompensated heart failure and COPD exacerbation
- Echocardiogram on day of presentation finds no focal wall motion abnormality. There is global left ventricular systolic dysfunction which may be a new diagnosis
- Troponin trend shows peak troponin on day of presentation at 1.66 and now trending downward. ECG with left bundle branch block, unchanged (left bundle branch block was noted in 2015)
Chronic obstructive pulmonary disease
- Currently on BiPAP with likely plan to wean off today
- Also being treated with IV steroids as well as bronchodilators
- Further evaluation and management as per primary service and possibly pulmonary
Currently on oral anticoagulation with warfarin
- uncertain of indication (paroxysmal atrial fibrillation ?), INR on day of presentation 06/20/24 is 2.86
- Will need her outpatient office notes/medical records from [facility]
Renal insufficiency
- Uncertain of baseline. Presented with creatinine of 1.9, now creatinine 2.2.
Likely some component of JENNIFER which may be related to transient hypotension 06/20 required IV pressors. No longer requiring IV pressors blood pressure improved/stabilized
Would continue diuresis as she is volume overloaded.
Anemia
- Presented with hemoglobin of 9.7 hemoglobin now down to 8.2. Uncertain of baseline
Further evaluation as per primary service
Discussed with patient and with ICU nursing
Critical care time today was 42 minutes in preparing to see the patient, seeing the patient and coordination of care. This included review of recent laboratory evaluations, cardiact testing, imaging studies, primary care rtecords, specialty
consultations, hospital records, as well as personally interviewing and examining the patient, which included discussion of their tests, review/ordering medications, and communicating with other healthcare professionals and also treatment planning
as well as counseling.
Progress Note - Search Director
Subjective
Date of Service: June 21, 2024
She appears much more comfortable (still on BiPAP) and she is able to communicate to me that she still is without chest pain. She also is able to communicate that her breathing is much improved.
Objective
Labs:
06/21/24 04:15
06/21/24 04:15
Labs
Hgb 8.2 g/dL (12.0-16.0) L 06/21/24 04:15
Hct 24.5 % (37.0-47.0) L 06/21/24 04:15
Plt Count 264 10^3/uL (130-400) 06/21/24 04:15
PT 30.0 Sec (11.4-14.6) H 06/20/24 09:31
INR 2.86 06/20/24 09:31
Sodium 139 mmol/L (135-145) 06/21/24 04:15
Potassium 4.8 mmol/L (3.5-5.1) 06/21/24 04:15
BUN 63 mg/dl (7-17) H 06/21/24 04:15
Creatinine 2.2 mg/dL (0.6-1.0) H 06/21/24 04:15
Glucose 174 mg/dl (70-99) H 06/21/24 04:15
Troponins
06/20/24 06/20/24 06/20/24
09:31 13:45 14:10
Troponin I 1.660 H* Cancelled Cancelled
06/20/24 06/20/24 06/20/24
14:55 16:25 18:22
Troponin I 1.190 H* D 1.150 H* Cancelled
06/20/24 06/21/24
20:00 04:15
Troponin I 1.100 H* 1.120 H*
Vital Signs and I&O:
Vital Signs
Temp Pulse Resp BP Pulse Ox
98.5 F 77 19 136/50 97
06/21/24 07:20 06/21/24 06:00 06/21/24 06:00 06/21/24 06:00 06/21/24 06:00
Vital Signs
Temp Pulse Resp BP Pulse Ox
98.5 F 77 19 136/50 97
06/21/24 07:20 06/21/24 06:00 06/21/24 06:00 06/21/24 06:00 06/21/24 06:00
Intake & Output
06/19/24 06/20/24 06/21/24 06/22/24
06:59 06:59 06:59 06:59
Intake Total 72.1 / 72.1
Output Total 500 / 500
Balance -427.9 / -427.9
Physical Exam
Physical Exam
Elderly woman appears comfortable wearing BiPAP
Regular rate and rhythm with normal S1 and S2, no S3 no S4 there is a grade 2/6 apical holosystolic murmur no rub.
Lungs are clear to auscultation anteriorly bilaterally
Abdomen soft nontender nondistended with normoactive bowel sounds
Extremities show no clubbing or cyanosis. There is trace pretibial edema bilaterally
[2024-06-21 09:55] LABS: INR 3.56; PT 35.3 Sec (11.4-14.6)
--- NOTE | 2024-06-21 12:26 | PTCARENOTE ---
Pt assessed.No change in assessment noted.Pt requested removal of BiPAP.Dr Messer made aware.BiPAP removed by RT as ordered.Assisted OOB to chair with 1 person minimal assist.
--- NOTE | 2024-06-21 15:56 | PTCARENOTE ---
Pt assessed.c/o 5/10 burning chest pain that is located across the chest-similar to pain yesterday.ST noted 109.ECG completed.Pt assisted back to bed.Dr Luna made aware.
[2024-06-21] MEDS: MAALOX 30 ML PO (16:15)
--- NOTE | 2024-06-21 16:22 | PTCARENOTE ---
Maalox given as ordered.
[2024-06-21] MEDS: NITROSTAT (SUBLINGUAL) 0.4 MG SL (16:42)
--- NOTE | 2024-06-21 16:45 | PTCARENOTE ---
NTG given as ordered for c/o burning chest pain 06/27.
[2024-06-21] MEDS: NSS 500 IV (17:09)
[2024-06-21] MEDS: CORDARONE 103 MG IV (17:46)
--- NOTE | 2024-06-21 17:57 | PTCARENOTE ---
1651-rapid A Fib noted .BP 76/64.Rosmery Varma and Cheryl made aware.1706-Ntg 5 mcg initiated.
Amio bolus ongoing. Pt cary c/o left chest pain and throat pain.Dr Luna made aware.Orders followed.
[2024-06-21] MEDS: CORDARONE 518 MG IV (18:04)
[2024-06-21] MEDS: NITROGLYCERIN PREMIX 250 IV (18:04)
[2024-06-21] MEDS: COUMADIN 2 MG PO (18:30)
[2024-06-21 18:52] LABS: Blood Urea Nitrogen 73 mg/dl (7-17); Calcium 8.8 mg/dl (8.4-10.2); Carbon Dioxide 20 mmol/L (22-30); Chloride 105 mmol/L (98-107); Estimated Creatinine Clearance 18 ml/min; Glucose 218 mg/dl (70-99); Magnesium 2.2 mg/dl (1.6-2.3); Phosphorus 4.3 mg/dl (2.5-4.5); Potassium 4.6 mmol/L (3.5-5.1); Sodium 137 mmol/L (135-145); eGFR 21.57
--- NOTE | 2024-06-21 19:18 | W.PN.UPDATE ---
Update Note
Progress Note Update
Her shortness of breath has essentially resolved after IV Lasix diuresis and BiPAP. BiPAP has since been weaned off and she remains without shortness of breath.
She developed atrial fibrillation with rapid ventricular rates this afternoon. This was associated with a sensation of burning in her chest and even some discomfort at her left substernal area. This was also associated initially with transient
hypotension which resolved after IV fluids and low-dose norepinephrine which has since been titrated off. Intravenous amiodarone bolus as well as infusion has been administered with infusion ongoing. She is also on intravenous nitroglycerin. Her
heart rates remain rapid but improved. Chest burning which she now tells me is her typical symptom of recurrent atrial fibrillation has also improved but not completely resolved.
ECG from 4:52 PM today shows atrial fibrillation with a rapid ventricular rate of 141 bpm and left bundle branch block with inferolateral ST segment depressions. Left bundle branch block is chronic, but ST depressions inferior laterally are new
compared to sinus rhythm ECG
Troponins remain low level with peak troponin 1.66 on presentation and subsequent value showing trend towards falling troponin. Most recent troponin from 6:20 PM today is 1.26
INR value from today has increased to 3.56
She remains critically ill
Patient reassessed given development of atrial fibrillation with rapid ventricular rate and anginal symptoms
Plan:
Immediate goal is to better control heart rate while maintaining stable blood pressure, this should alleviate her anginal symptoms
- Continue IV amiodarone
- Start concomitant oral amiodarone at 200 mg p.o. 3 times daily
- Digoxin 0.5 mg IV as a now ordered by me earlier today and will be given shortly
- Will also initiate beta-gerri, metoprolol tartrate 12.5 mg p.o. every 6 hours with hold parameters for heart rate and blood pressure
- Hold warfarin given climbing INR
- Consider initiating IV heparin for ACS but hemoglobin is falling, down to 8.2 this morning and if we can get better control of her heart rate, it is likely her anginal symptoms will se
- Further evaluation and management of anemia (falling hemoglobin) as per primary service
Discussed overall acute plan of attempting to get better control of her heart rate with patient and her family at bedside and also with ICU nursing.
Critical care time 45 minutes
[2024-06-21] MEDS: LANOXIN 500 MCG IV (19:23)
--- NOTE | 2024-06-21 19:54 | PTCARENOTE ---
Pt Aox3, flat affect, c/o chest burning 04/27, nitro increased to 10mcg, amiodarone infusing at 1mg, and digoxin administered. + murmur, no edema. Pt is on room air, crackles in b/l bases. Q2 turns, offers no complaints at this time.
[2024-06-21] MEDS: PACERONE 200 MG PO (22:25)
[2024-06-22] VITALS (37 sets, daily range): BP systolic 90–141; BP diastolic 36–79; BMI 22.0
[2024-06-22] MEDS: LOPRESSOR 12.5 MG PO ×5 (00:48→23:30)
[2024-06-22 04:46] LABS: Hemoglobin 8.1 g/dL (12.0-16.0); Mean Corp Hgb Conc. 33.8 g/dL (33.0-37.0); Mean Corpuscular Hgb 29.3 pg (27.0-31.0); Mean Platelet Volume 10.8 fL (7.4-10.4); Platelet Count 264 10^3/uL (130-400); Red Blood Cell Count 2.76 10^6/uL (4.20-5.40); Red Cell Dist. Width 13.4 % (11.5-14.5); White Blood Cell Count 18.5 10^3/uL (4.8-10.8)
[2024-06-22 04:58] LABS: INR 4.35; PT 41.1 Sec (11.4-14.6)
[2024-06-22 05:14] LABS: ALT (SGPT) 189 U/L (0-35); AST (SGOT) 131 U/L (14-36); Albumin 3.6 g/dl (3.5-5.0); Alkaline Phosphatase 128 U/L (38-126); Blood Urea Nitrogen 75 mg/dl (7-17); Calcium 8.8 mg/dl (8.4-10.2); Carbon Dioxide 24 mmol/L (22-30); Chloride 104 mmol/L (98-107); Estimated Creatinine Clearance 18 ml/min; Glucose 123 mg/dl (70-99); Magnesium 2.4 mg/dl (1.6-2.3); Phosphorus 4.2 mg/dl (2.5-4.5); Potassium 4.5 mmol/L (3.5-5.1); Sodium 137 mmol/L (135-145); Total Bilirubin 0.7 mg/dl (0.2-1.3); Total Protein 6.3 g/dl (6.3-8.2); eGFR 21.57
[2024-06-22 05:26] LABS: NT-proBNP > 27000 pg/ml
--- NOTE | 2024-06-22 08:15 | PTCARENOTE ---
Assumed care of patient. Pt rec'd sleeping but easily arousable. A&Ox3. Pleasant. Flat affect. Denies chest pain. Mild nausea noted...will monitor. S1 S2 irregular w/ afib on monitor. Weak PP. No edema. On R/A...sats 97%. Lungs diminished
w/ fine crackles left base and coarse crackles right base. Occasional NPC. Abdomen round...hypo BS. Poor appetite. Takes po meds w/o issue. Boris noted..draining yellow urine. Skin pale and dry. 20P LFA w/ amiodarone infusing. 18P RAC
capped. VS documented. Call suazo within reach.
--- NOTE | 2024-06-22 08:26 | W.PN.CARDCBS ---
Addendum entered and electronically signed by Mulugeta Ocampo DO 06/22/24 10:12:
.
Coumadin on hold as INR >4. Pt is not getting IV Heparin.
Original Note:
Today's Communication / Plan
-
Troponin now 19.4 AM June 22 s/p rapid aFib. Her also passed days before admit, possible Takotsubo in differential but she does have prior CABG and DM and carotid dx
Cont IV Hep
Cont IV nitro
She remains chest pain free. Check urgent echo to reeval EF
Obtain old records from [facility]. She is concerned about procedure risk and her renal function. Will reassess EF and cont to trend troponin. Will update family as well pending echo further trop and clinical course.
LBBB on EKG is chronic
Cont amiodarone oral load, rate control strategy for now.
Wean off IV amiodarone.
Monitor H/H with IV heparin anticoagulation, Hb 8.1 on June 22.
Cont IV lasix for decompensated congestive heart failure remote history of normal LVEF, now EF 30-35% on day of presentation June 20
Cr elevated but stable at 2.2 last few days.
Bp stable Off IV pressors.
Chronic obstructive pulmonary disease
-off BiPAP with likely plan to wean off today
- Also being treated with IV steroids as well as bronchodilators
- Further evaluation and management as per primary service and possibly pulmonary
-continues with Leukocytosis.
She was on oral anticoagulation with warfarin
- uncertain of indication, will need her outpatient office notes/medical records from [facility]
Renal insufficiency
- Uncertain of baseline. Presented with creatinine of 1.9, now creatinine 2.2.
Likely some component of JENNIFER which may be related to transient hypotension 5/3 required IV pressors. No longer requiring IV pressors blood pressure improved/stabilized
Would continue diuresis as she is volume overloaded.
Impression / Plan
-
.
Primary construction tech is Dr. Josue Almendarez
Impression:
Presents with decompensated congestive heart failure and there may be a component of COPD exacerbation
CM EF 30-35%
Possible NSTEMI trop now 19 in setting of rapid AFib.
Rapid AFib
Elevated troponin
History of COPD
Chronic LBBB
There is notation that in 2014 she developed 'new LBB' which prompted coronary angiography finding widely patent grafts
CAD s/p CABG Nov 2005
CASEY to LAD and sequential SVG�OM1/2
Hx bio AVR
Carotid arterial disease status post prior carotid endarterectomy on the left in 2009.
DM-2
Hypertension
Dyslipidemic but noted to be statin intolerant
Echocardiogram June 20, 2024: Globally and severely reduced left ventricular systolic function with ejection fraction of 30 to 35%. There is mild to moderate mitral regurgitation. Tissue aortic valve mean gradient of 4 mmHg with mild aortic
insufficiency. There is moderate tricuspid regurgitation. There is markedly elevated estimated pulmonary artery pressure at 65 to 70 mmHg.
Plan:
Troponin now 19.4 AM June 22 s/p rapid aFib. Her also passed days before admit, possible Takotsubo in differential but she does have prior CABG and DM and carotid dx
Cont IV Hep
Cont IV nitro
She remains chest pain free. Check urgent echo to reeval EF
Obtain old records from [facility]. She is concerned about procedure risk and her renal function. Will reassess EF and cont to trend troponin. Will update family as well pending echo further trop and clinical course.
LBBB on EKG is chronic
Cont amiodarone oral load, rate control strategy for now.
Wean off IV amiodarone.
Monitor H/H with IV heparin anticoagulation, Hb 8.1 on June 22.
Cont IV lasix for decompensated congestive heart failure remote history of normal LVEF, now EF 30-35% on day of presentation June 20
Cr elevated but stable at 2.2 last few days.
Bp stable Off IV pressors.
Chronic obstructive pulmonary disease
-off BiPAP with likely plan to wean off today
- Also being treated with IV steroids as well as bronchodilators
- Further evaluation and management as per primary service and possibly pulmonary
-continues with Leukocytosis.
She was on oral anticoagulation with warfarin
- uncertain of indication, will need her outpatient office notes/medical records from [facility]
Renal insufficiency
- Uncertain of baseline. Presented with creatinine of 1.9, now creatinine 2.2.
Likely some component of JENNIFER which may be related to transient hypotension 5/3 required IV pressors. No longer requiring IV pressors blood pressure improved/stabilized
Would continue diuresis as she is volume overloaded.
Discussed with patient and with ICU nursing
Critical care time today 44 minutes
Progress Note - Photographs Curator
Subjective
Date of Service: June 22, 2024
Pt seen and examined. No complaints. No chest pain or shortness of breath.
Objective
Labs:
06/22/24 04:35
06/22/24 04:35
Labs
Hgb 8.1 g/dL (12.0-16.0) L 06/22/24 04:35
Hct 24.0 % (37.0-47.0) L 06/22/24 04:35
Plt Count 264 10^3/uL (130-400) 06/22/24 04:35
PT 41.1 Sec (11.4-14.6) H 06/22/24 04:35
INR 4.35 06/22/24 04:35
Sodium 137 mmol/L (135-145) 06/22/24 04:35
Potassium 4.5 mmol/L (3.5-5.1) 06/22/24 04:35
BUN 75 mg/dl (7-17) H 06/22/24 04:35
Creatinine 2.2 mg/dL (0.6-1.0) H 06/22/24 04:35
Glucose 123 mg/dl (70-99) H 06/22/24 04:35
Troponins
05/05/1206/20/24 06/20/24
09:31 13:45 14:10
Troponin I 1.660 H* Cancelled Cancelled
06/20/24 06/20/24 06/20/24
14:55 16:25 18:22
Troponin I 1.190 H* D 1.150 H* Cancelled
06/20/24 06/21/24 06/21/24
20:00 04:15 18:20
Troponin I 1.100 H* 1.120 H* 1.260 H*
06/22/24
04:35
Troponin I 19.500 H*
Vital Signs and I&O:
Vital Signs
Temp Pulse Resp BP Pulse Ox
97.6 F 70 19 108/41 95
06/22/24 08:01 06/22/24 06:02 06/22/24 05:15 06/22/24 06:02 06/22/24 05:15
Vital Signs
Temp Pulse Resp BP Pulse Ox
97.6 F 70 19 108/41 95
06/22/24 08:01 06/22/24 06:02 06/22/24 05:15 06/22/24 06:02 06/22/24 05:15
Intake & Output
06/20/24 06/21/24 06/22/24 06/23/24
06:59 06:59 06:59 06:59
Intake Total 72.1 / 75.9 7.6 / 7.6
Output Total 500 / 500 550 / 550
Balance -427.9 / -424.1 -542.4 / -542.4
Physical Exam
Physical Exam
General: No acute distress, AAOX3, frail deconditioned
Neck: Negative JVD
Heart: Irregularly irregular, Negative S3 positive S1/S2, Negative S4, No murmur
Lungs: CTA b/l, negative wheezes/rales/rhonchi
Abd: Positive BS, NT/ND, neg rebound/rigidity/guarding
Ext: Negative cyanosis/clubbing/edema
Neuro: nonfocal
[2024-06-22] MEDS: PACERONE 200 MG PO ×3 (08:57→21:20)
[2024-06-22] MEDS: LIPITOR 20 MG PO (08:58)
[2024-06-22] MEDS: LASIX 40 MG IV (08:58)
[2024-06-22] MEDS: ZOFRAN 4 MG IV (09:12)
--- NOTE | 2024-06-22 09:13 | PTCARENOTE ---
Pt c/o nausea. Dr.Gejer aware. Carpenter ordered prn and provided.
--- NOTE | 2024-06-22 13:00 | PTCARENOTE ---
ECHO being done at bedside. Family fully updated.
--- NOTE | 2024-06-22 13:04 | CARDSERVLU ---
Echocardiogram with [facility] completed after protocol screening completed. Allergies verified.
Patent IV site: ____left FA_
IV site flushed with 0.9% NaCl pre and post administration.
Diluted bolus method utilized to enhance visualization of ventricular rodriguez.
Total volume given: __2.0_ mL
Patient tolerated all procedures well without complications.
[2024-06-22] MEDS: LASIX IV (16:10)
--- NOTE | 2024-06-22 16:22 | W.PN.UPDATE ---
Update Note
Progress Note Update
Went back to reevaluate the patient and discussed with the daughter at bedside.
Repeat echo shows EF 35-40%. She remains cp free. HR and bp are stable off pressor therapy. Troponin has not yet peaked at 20.7. Discussed options including eventual cardiac cath to evaluate her coronary anatomy. Discussed the risks and benefits.
She currently declines cardiac catheterization to evaluate her coronary anatomy. She is concerned about the risks to her kidneys regarding the procedure. Her creatinine is currently 2.2 which is up from her baseline creatinine of 1.6-1.8. Will
hold p.m. Lasix and reevaluate creatinine in the a.m. Continue to trend troponin. We discussed the fact that she may have significant CAD given her rising troponin, history of diabetes and known CABG. Cont to monitor her H/H. She remains anemic.
stool yesterday was noted to be brown by report. Continue to hold Coumadin. Continue to monitor INR.
The patient and her daughter understand the risks and wish to continue medical therapy. They were appreciative of explanation.
Discussed with nursing.
CCT: 30 min
--- NOTE | 2024-06-22 16:46 | CM ---
Chart reviewed and patient is currently on room air, patient would benefit from PT/OT when appropriate to assist with discharge planning needs.
Plan; To follow with patient progress.
--- NOTE | 2024-06-22 17:22 | W.PN.HOSP.TC ---
Today's Communication/Plan
-
Assessment / Plan
Assessment / Plan
NAD
Scleral Anicteric
MMM
No JVD
CTABL
RRR, S1/S2
Soft, NT, ND, BS+
Warm, Dry
AAOx3
Calm
Heart failure reduced EF, EF initially 30 to 35% now 35 to 40%
Hold Lasix
Depending on discharge renal function may be able to tolerate GDMT such as SGLT2 inhibitor, ELENI I, ARB, nephrolysin inhibitor, MRA
If heart rate tolerates will be on beta-blockade
NSTEMI
Continue to trend troponins till peak
Cardiology following
2D echocardiogram repeat was completed with findings of anterior/anteroseptal/inferior septal and anterolateral hypokinesis
Cardiology discussed with family and Ms. Hewitt at this time holding off on left heart catheterization due to renal function being 2.2. Will medically manage per cardiology's recommendation
A-fib with rapid RVR, supratherapeutic INR
Hold Coumadin as INR supratherapeutic
Continue Amio load and wean IV amnio as tolerated
JENNIFER on CKD with a unclear baseline creat, however creatinine has remained stable at 2.2 over the last 36 to 48 hours
Hold Lasix today
Monitor renal function
Avoid nephrotoxins hypotension
Monitor urinary output
COPD
Weaned off of BiPAP
Without evidence of acute bronchospasm on exam therefore currently not on steroids continue breathing treatment
CAD s/p CABG
Continue statin beta-gerri
Hyperlipidemia
Statin
Anticipated Discharge: > 48 hours
Subjective/Interval History
-
Date of Service: June 22, 2024
Seen and examined was getting echocardiogram completed at the time of my evaluation therefore exam was limited
Objective Data
-
Vital Signs:
Vital Signs
Temp Pulse Resp BP Pulse Ox
97.8 F 60 19 113/45 95
06/22/24 15:33 06/22/24 16:11 06/22/24 13:00 06/22/24 16:11 06/22/24 13:00
I&O
06/21/24 06/22/24 06/23/24
06:59 06:59 06:59
Intake Total 72.1 / 75.9 7.6 / 7.6 120 / 120
Output Total 500 / 500 550 / 550 900 / 900
Balance -427.9 / -424.1 -542.4 / -542.4 -780 / -780
--- NOTE | 2024-06-22 17:45 | PTCARENOTE ---
Report called to Olivia ARSHAD on IMU. Pt to transfer to Room 3356.
--- NOTE | 2024-06-22 18:25 | PTCARENOTE ---
Pt transferred to Room 3356. Belongings sent w/ pt. Family aware of transfer.
--- NOTE | 2024-06-22 23:06 | PTCARENOTE ---
Patient AAOx3. Sinus madhavi on monitor when sleeping. Patient on room air sating at 94%. Patient has poor appetite. Purewick in place. No complaints of pain. Patient had family at bedside for a few hours. Patient currently resting in bed with call
suazo in reach.
[2024-06-23] VITALS (14 sets, daily range): BP systolic 105–136; BP diastolic 30–64; BMI 21.6
[2024-06-23] MEDS: LOPRESSOR 12.5 MG PO ×4 (05:06→23:38)
[2024-06-23 05:32] LABS: Hemoglobin 8.8 g/dL (12.0-16.0); Mean Corp Hgb Conc. 32.6 g/dL (33.0-37.0); Mean Corpuscular Hgb 28.5 pg (27.0-31.0); Mean Corpuscular Volume 87.4 fL (81.0-99.0); Mean Platelet Volume 10.7 fL (7.4-10.4); Platelet Count 274 10^3/uL (130-400); Red Blood Cell Count 3.09 10^6/uL (4.20-5.40); Red Cell Dist. Width 13.2 % (11.5-14.5); White Blood Cell Count 11.5 10^3/uL (4.8-10.8)
[2024-06-23 05:55] LABS: Blood Urea Nitrogen 76 mg/dl (7-17); Calcium 9.1 mg/dl (8.4-10.2); Carbon Dioxide 27 mmol/L (22-30); Chloride 104 mmol/L (98-107); Estimated Creatinine Clearance 16 ml/min; Glucose 78 mg/dl (70-99); Potassium 4.3 mmol/L (3.5-5.1); Sodium 139 mmol/L (135-145)
[2024-06-23 06:00] LABS: INR 3.87; PT 37.6 Sec (11.4-14.6)
--- NOTE | 2024-06-23 07:31 | W.PN.CARDCBS ---
Today's Communication / Plan
-
Hold further diuresis after today and monitor cr
Echo reviewed with pt
Trop improved. Medical therapy of NSTEMI as pt declines cath
Impression / Plan
-
.
Primary simulation technician is Dr. Josue Almendarez
Impression:
Presents with decompensated congestive heart failure and there may be a component of COPD exacerbation
CM EF 35-40%
Mod MR
Possible NSTEMI trop now 19 in setting of rapid AFib.
Rapid AFib
Elevated troponin
History of COPD
Chronic LBBB
There is notation that in 2014 she developed 'new LBB' which prompted coronary angiography finding widely patent grafts
CAD s/p CABG Nov 2005
CASEY to LAD and sequential SVG�OM1/2
Hx bio AVR with mod to severe stenosis by recent echo peak/mean grad 64/40 mmHg, mild to mod AR
Carotid arterial disease status post prior carotid endarterectomy on the left in 2009.
DM-2
Hypertension
Dyslipidemic but noted to be statin intolerant
Echo June 20, 2024: Globally and severely reduced left ventricular systolic function with ejection fraction of 30 to 35%. There is mild to moderate mitral regurgitation. Tissue aortic valve mean gradient of 4 mmHg with mild aortic insufficiency.
There is moderate tricuspid regurgitation. There is markedly elevated estimated pulmonary artery pressure at 65 to 70 mmHg.
Echo Jun 22 2024: Normal left ventricular chamber size. Mild concentric left ventricular hypertrophy. Mildly reduced left ventricular systolic function. Anterior, anteroseptal, inferoseptal and anterolateral hypokinesis. Left ventricular ejection
fraction is 35-40%. Moderate mitral regurgitation. S/p aortic valve replacement with peak/mean gradients across the aortic valve of 64/40 mmHg respectively. Mild to moderate aortic regurgitation.
Mild tricuspid regurgitation. Estimated pulmonary artery pressure of 32 mmHg. Compared to the previous Jun 20 2024 which was reviewed, echo EF was 30-35% at that time and AV was poorly visualized
Plan:
Troponin peaked at 20 s/p rapid aFib episode. Her also passed days before admit. Long discussion regarding her options and for left heart cath and she and daughter decline this. She is concerned about her renal risks.
INR coming down but remains elevated at 3.87, eventually resume coumadin
Urgent echo to reeval EF June 22 with stable EF 35-40% with mod MR and s/p AVR with mod to severe stenosis with peak/mean AV grad of 64/40 mmHg respectively, mild to mod AR.
Cont medical therapy for now for her NSTEMI, CM and bioAVR stenosis
Reviewed available records from [facility].
LBBB on EKG is chronic
Cont amiodarone oral load, rate control strategy for now. Resume coumadin once INR improved.
Monitor H/H with IV heparin anticoagulation, Hb 8.8 on June 23. No clinical evidence of active bleeding.
Cont IV lasix for decompensated congestive heart failure remote history of normal LVEF, now EF 35-40%.
Cr elevated and up to 2.5 on 06/23. Will hold further diuresis and reeval cr in AM 06/24.
Cr baseline approx 1.6-1.8.
Bp remains stable.
Chronic obstructive pulmonary disease tx as per pulm. Outpt follow up chest xray. Pulm signed off.
Discussed with nursing.
Progress Note - Energy Efficiency Engineer
Subjective
Date of Service: June 23, 2024
Pt seen and examined. No cp. breathing better
Objective
Labs:
06/23/24 05:12
06/23/24 05:12
Labs
Hgb 8.8 g/dL (12.0-16.0) L 06/23/24 05:12
Hct 27.0 % (37.0-47.0) L 06/23/24 05:12
Plt Count 274 10^3/uL (130-400) 06/23/24 05:12
PT 37.6 Sec (11.4-14.6) H 06/23/24 05:12
INR 3.87 06/23/24 05:12
Sodium 139 mmol/L (135-145) 06/23/24 05:12
Potassium 4.3 mmol/L (3.5-5.1) 06/23/24 05:12
BUN 76 mg/dl (7-17) H 06/23/24 05:12
Creatinine 2.5 mg/dL (0.6-1.0) H 06/23/24 05:12
Glucose 78 mg/dl (70-99) 06/23/24 05:12
Troponins
06/20/24 06/20/24 06/20/24
09:31 13:45 14:10
Troponin I 1.660 H* Cancelled Cancelled
06/20/24 06/20/24 06/20/24
14:55 16:25 18:22
Troponin I 1.190 H* D 1.150 H* Cancelled
06/20/24 06/21/24 06/21/24
20:00 04:15 18:20
Troponin I 1.100 H* 1.120 H* 1.260 H*
06/22/24 06/22/24 06/22/24
04:35 10:34 17:49
Troponin I 19.500 H* 20.700 H* 16.700 H*
06/22/24 06/23/24 06/23/24
23:38 05:12 11:45
Troponin I 12.900 H* 9.940 H* Cancelled
Vital Signs and I&O:
Vital Signs
Temp Pulse Resp BP Pulse Ox
97.4 F 57 14 106/30 94
06/23/24 03:00 06/23/24 05:15 06/23/24 05:15 06/23/24 05:06 06/23/24 05:15
Vital Signs
Temp Pulse Resp BP Pulse Ox
97.4 F 57 14 106/30 94
06/23/24 03:00 06/23/24 05:15 06/23/24 05:15 06/23/24 05:06 06/23/24 05:15
Intake & Output
06/21/24 06/22/24 06/23/24 06/24/24
06:59 06:59 06:59 06:59
Intake Total 72.1 / 75.9 7.6 / 7.6 120 / 120
Output Total 500 / 500 550 / 550 900 / 900
Balance -427.9 / -424.1 -542.4 / -542.4 -780 / -780
Physical Exam
Physical Exam
General: No acute distress, AAOX3, frail
Neck: Negative JVD
Heart: Regular, Negative S3 positive S1/S2, Negative S4, No murmur
Lungs: CTA b/l, negative wheezes/rales/rhonchi
Abd: Positive BS, NT/ND, neg rebound/rigidity/guarding
Ext: Negative cyanosis/clubbing/edema
Neuro: nonfocal
--- NOTE | 2024-06-23 08:17 | PTCARENOTE ---
Patient received from maintenance technician 2nd shift. Patient resting comfortably. AAO, VSS. No events noted overnight. No complaints of pain at this time. Currently on Room Air. No fluids through IV. Will attempt to get OOB. Call suazo in reach.
[2024-06-23] MEDS: PACERONE 200 MG PO ×3 (08:37→21:05)
[2024-06-23] MEDS: LIPITOR 20 MG PO (08:37)
--- NOTE | 2024-06-23 10:35 | W.PN.PUL3 ---
Today's Communication / Plan
-
Continue cardiac management
Incentive spirometry
Increase mobility as able
Repeat chest x-ray in about 4 to 6 weeks to document resolution of bilateral infiltrates
Sign off
Assessment
-
Assessment: 83-year-old female with a past medical history of A-fib currently in NSR, valvular heart disease, CAD, hypertension, hyperlipidemia, DM type II, and history of COPD/asthma who arrives with SOB X 3 days. Patient recently lost her spouse
3 days ago and she has been neglectful of her health. She has a history of A-fib. She has been more short of breath lately. She is followed [facility]. She has an inhaler at home and tried to use it (albuterol) but this
led to no relief. In the ER she was afebrile to 98 �F, pulse rate 86, tachypneic to 32 breaths/min, hypertensive to 174/67, and saturating 91% on room air which improved to 97% on 2 L/min. She was eventually transition to BiPAP due to continued
tachypnea. Labs showed WBC 13.3, Hb 9.7, absolute eosinophil count 300, INR 2.6 (she is on Coumadin), creatinine 1.9, serum bicarbonate 23, troponin initially 1.66, LFTs elevated with AST 84, ALT 85, and T. bili WNL at 0.8, and proBNP >27,000.
COVID-19 antigen negative. Flu swab A/P was negative, and blood cultures were collected. CXR shows acute congestive heart failure. She was given albuterol in the ER, aspirin, 40 mg IV Lasix, DuoNebs, 40 mg Solu-Medrol, and vancomycin. Due to her
continued tachypnea and hypertensive crisis initially on nitroglycerin drip, patient admitted to the ICU with brush filler hand services consulted for additional management/recommendations.
Pulmonary following for hypoxemic respiratory failure 06/23/2024.
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
Impression:
#Acute decompensated heart failure/acute HFrEF with rapid A-fib now in NSR as of 06/20
#Acute respiratory failure with hypoxia requiring continuous BiPAP now off BiPAP and on room air
#Hypertensive crisis requiring nitroglycerin drip c/b hypotension --> nitroglycerin drip stopped and Levophed started - now off as of this AM
#Circulatory shock now on Levophed - now resolved as of this AM (06/21)
#Leukocytosis
#Acute metabolic acidosis due to JENNIFER with mild acute respiratory alkalosis (she is a chronic CO retainer - unclear baseline pCO2 though)
#Anemia
#Chronic anticoagulation use with Coumadin with INR appropriately elevated
#JENNIFER (unknown baseline)
#Transaminitis
#Elevated troponin (peaked at 1.660 on 06/20/2024)
#Reported history of COPD/asthma, not currently wheezing
#Grieving due to recent loss of her 3 days prior to arrival
Plan:
-Hypoxemic respiratory failure resolved.
No longer requiring BiPAP
Lung exam relatively clear without bronchospasm.
Patient does not take any inhalers in the outpatient setting.
-
Continue with cardiac management
Cardiology correspondence reviewed-patient declined cardiac catheterization
-
Encourage incentive spirometry
Increase mobility as able
No further recommendation from the pulmonary perspective pulm
-
Recommend repeating chest x-ray in the outpatient setting in about 4 to 6 weeks to document resolution of bilateral infiltrates which are related to pulmonary edema.
Can be done with primary care.
-
Sign off
Data:
CXR 06/20/2024: Findings most consistent with congestive heart failure.
Echocardiogram June 20, 2024: Globally and severely reduced left ventricular systolic function with ejection fraction of 30 to 35%. There is mild to moderate mitral regurgitation. Tissue aortic valve mean gradient of 4 mmHg with mild aortic
insufficiency. There is moderate tricuspid regurgitation. There is markedly elevated estimated pulmonary artery pressure at 65 to 70 mmHg.
Subjective Data
-
Date of Service:
Date of Service: June 23, 2024
Chief Complaint: Pulmonary Follow Up (Hypoxemic respiratory failure due to CHF)
Subjective:
Clinically improved from the pulmonary perspective
Denies increased cough and phlegm production
Denies hemoptysis
No shortness of breath at rest
Review of Systems
Cardiopulmonary: Cough (n), Sputum Production (n) and Wheezing (n)
Objective Data
Data Reviewed
Vital Signs / I&O / Oxygen:
Vital Signs
Temp Pulse Resp BP Pulse Ox
98.1 F 53 14 105/32 95
06/23/24 07:40 06/23/24 08:37 06/23/24 05:15 06/23/24 08:37 06/23/24 08:54
Intake and Output
06/22/24 06/23/24 06/24/24
06:59 06:59 06:59
Intake Total 7.6 / 7.6 120 / 120
Output Total 550 / 550 900 / 900
Balance -542.4 / -542.4 -780 / -780
SaO2 95
Nasal Cannula flow liters per 4
minute
Physical Exam
General: Comfortable
HEENT: Normocephalic
Cardiovascular: S1-S2
Respiratory: Clear and Non-Labored Respirations
GI: Soft and Non Distended
Neurology: Awake, Alert, Oriented and No Motor Deficits
Labs/Micro/Reports
Lab Data
06/23/24 05:12
06/23/24 05:12
Laboratory Results
06/23/24
05:12
PT 37.6 H
INR 3.87
Microbiology
06/20/24 11:20 Blood/Venous Blood Culture - Preliminary
No Growth in 48 hours- Final report to follow
06/20/24 10:59 Blood/Venous Blood Culture - Preliminary
No Growth in 48 hours- Final report to follow
06/20/24 10:40 Nasal Swab Influenza Types A & B (FELECIA) - Final
Negative for Influenza A & B, NAAT
Negative results must be combined with clinical observations
and patient history.
Nucleic Acid Amplification test (NAAT)performed on the
[employer] platform.
--- NOTE | 2024-06-23 22:11 | W.PN.HOSP.TC ---
Today's Communication/Plan
-
Assessment / Plan
Assessment / Plan
NAD
Scleral Anicteric
MMM
No JVD
CTABL
RRR, S1/S2
Soft, NT, ND, BS+
Warm, Dry
AAOx3
Calm
Heart failure reduced EF, EF initially 30 to 35% now 35 to 40%
Hold Lasix
Depending on discharge renal function may be able to tolerate GDMT such as SGLT2 inhibitor, ELENI I, ARB, nephrolysin inhibitor, MRA
If heart rate tolerates will be on beta-blockade
NSTEMI
Trops peaked at 20.7
Cardiology following
2D echocardiogram repeat was completed with findings of anterior/anteroseptal/inferior septal and anterolateral hypokinesis
Cardiology discussed with family and Ms. Hewitt at this time holding off on left heart catheterization due to renal function being 2.5.
Will medically manage per cardiology's recommendation
A-fib with rapid RVR, supratherapeutic INR
Hold Coumadin as INR supratherapeutic
Continue Amio load and wean IV amnio as tolerated
JENNIFER on CKD with a unclear baseline creat, bumped today
Hold Lasix today
Monitor renal function
Avoid nephrotoxins hypotension
Monitor urinary output
If getting worse will consult Nephrology
COPD
Weaned off of BiPAP
Without evidence of acute bronchospasm on exam therefore currently not on steroids continue breathing treatment
CAD s/p CABG
Continue statin beta-gerri
Hyperlipidemia
Statin
Anticipated Discharge: > 48 hours
Subjective/Interval History
-
Date of Service: June 23, 2024
seen and examined. states is tired. does not want cath
understands cr slightly worse today at 2.5
Objective Data
-
Vital Signs:
Vital Signs
Temp Pulse Resp BP Pulse Ox
99.0 F 59 14 118/64 99
06/23/24 19:00 06/23/24 21:05 06/23/24 20:00 06/23/24 21:05 06/23/24 20:43
I&O
06/22/24 06/23/24 06/24/24
06:59 06:59 06:59
Intake Total 7.6 / 7.6 120 / 120
Output Total 550 / 550 900 / 900
Balance -542.4 / -542.4 -780 / -780
[2024-06-24] VITALS (15 sets, daily range): BP systolic 103–149; BP diastolic 28–98; PULSE 65; O2SAT 96; BMI 22.3
--- NOTE | 2024-06-24 03:11 | PTCARENOTE ---
received patient from [facility]. Patient AAOx3 and on RA. Patient walking into the bathroom was a x1 stand by assist. Patient has no complaints at this time. Patient resting in bed with call suazo in reach.
[2024-06-24 04:38] LABS: Hematocrit 26.1 % (37.0-47.0); Hemoglobin 8.6 g/dL (12.0-16.0); Mean Corpuscular Hgb 28.6 pg (27.0-31.0); Mean Corpuscular Volume 86.7 fL (81.0-99.0); Platelet Count 282 10^3/uL (130-400); Red Blood Cell Count 3.01 10^6/uL (4.20-5.40); Red Cell Dist. Width 13.1 % (11.5-14.5); White Blood Cell Count 10.4 10^3/uL (4.8-10.8)
[2024-06-24 05:08] LABS: Blood Urea Nitrogen 77 mg/dl (7-17); Calcium 8.8 mg/dl (8.4-10.2); Carbon Dioxide 27 mmol/L (22-30); Chloride 104 mmol/L (98-107); Estimated Creatinine Clearance 17 ml/min; Glucose 81 mg/dl (70-99); Potassium 4.4 mmol/L (3.5-5.1); Sodium 139 mmol/L (135-145); eGFR 20.45
[2024-06-24 05:22] LABS: PT 30.3 Sec (11.4-14.6)
[2024-06-24] MEDS: LOPRESSOR 12.5 MG PO (05:37)
[2024-06-24] MEDS: PACERONE 200 MG PO ×3 (08:22→22:14)
[2024-06-24] MEDS: LIPITOR 20 MG PO (08:22)
--- NOTE | 2024-06-24 08:45 | PTCARENOTE ---
Patient received from fast food shift lead. Patient resting comfortably. AAO, VSS. No events noted overnight. No complaints of pain at this time. Currently on Room Air. No fluids through IV. Will get OOB to chair again. Possible downgrade today.
Discharge?? Call suazo in reach.
--- NOTE | 2024-06-24 12:37 | W.PN.CARDCBS ---
Today's Communication / Plan
-
She remains in sinus rhythm and blood pressure is stable. Creatinine down to 2.3. We will continue to hold diuretics for another 24 hours and likely resume in a.m.
I had a lengthy discussion regard regarding her reduced ejection fraction and severe bioprosthetic aortic valve stenosis. She prefers a conservative therapy and does not desire cardiac cath at this time. She prefers to discuss options with her
primary coater operator insulation board Dr. Almendarez as an outpatient.
For now we will continue to optimize her medically. She will continue the amiodarone 200 mg p.o. 3 times daily. Will likely decrease to 20 mg p.o. twice daily in AM. Will switch metoprolol to tartrate to Toprol-XL 25 mg daily. Continue
atorvastatin.
Restart Coumadin.
Impression / Plan
-
.
Primary coater operator insulation board is Dr. Josue Almendarez
Impression:
Presents with decompensated congestive heart failure and there may be a component of COPD exacerbation
CM EF 35-40%
Mod MR
Possible NSTEMI trop now 19 in setting of rapid AFib.
Rapid AFib
Elevated troponin
History of COPD
Chronic LBBB
There is notation that in 2014 she developed 'new LBB' which prompted coronary angiography finding widely patent grafts
CAD s/p CABG Nov 2005
CASEY to LAD and sequential SVG�OM1/2
Hx bio AVR with mod to severe stenosis by recent echo peak/mean grad 64/40 mmHg, mild to mod AR
Carotid arterial disease status post prior carotid endarterectomy on the left in 2009.
DM-2
Hypertension
Dyslipidemic but noted to be statin intolerant
Echo June 20, 2024: Globally and severely reduced left ventricular systolic function with ejection fraction of 30 to 35%. There is mild to moderate mitral regurgitation. Tissue aortic valve mean gradient of 4 mmHg with mild aortic insufficiency.
There is moderate tricuspid regurgitation. There is markedly elevated estimated pulmonary artery pressure at 65 to 70 mmHg.
Echo Jun 22 2024: Normal left ventricular chamber size. Mild concentric left ventricular hypertrophy. Mildly reduced left ventricular systolic function. Anterior, anteroseptal, inferoseptal and anterolateral hypokinesis. Left ventricular ejection
fraction is 35-40%. Moderate mitral regurgitation. S/p aortic valve replacement with peak/mean gradients across the aortic valve of 64/40 mmHg respectively. Mild to moderate aortic regurgitation.
Mild tricuspid regurgitation. Estimated pulmonary artery pressure of 32 mmHg. Compared to the previous Jun 20 2024 which was reviewed, echo EF was 30-35% at that time and AV was poorly visualized
Plan:
Troponin peaked at 20 s/p rapid aFib episode. Her also passed days before admit. Long discussion regarding her options and for left heart cath and she and daughter decline this. She is concerned about her renal risks.
INR down to 2.9.
Urgent echo to reeval EF June 22 with stable EF 35-40% with mod MR and s/p AVR with mod to severe stenosis with peak/mean AV grad of 64/40 mmHg respectively, mild to mod AR.
Cont medical therapy for now for her NSTEMI, CM and bioAVR stenosis
Reviewed available records from [facility]. Again, she does not desire a cardiac cath at this time. We did discuss that her valve is worsening and gradients are increased.
Diuresis has been held and creatinine is improving and is down to 2.3. Will continue to hold and likely consider adding oral diuretics in AM. Weight is up slightly.
Hemoglobin stable at 8.6.
Cr baseline approx 1.6-1.8.
Bp remains stable.
Chronic obstructive pulmonary disease tx as per pulm. Outpt follow up chest xray. Pulm signed off.
Progress Note - Telehealth Nurse
Subjective
Date of Service: June 24, 2024
She denies chest pains or shortness of breath. She feels no palpitations and remains in sinus
Objective
Labs:
06/24/24 04:29
06/24/24 04:28
Labs
Hgb 8.6 g/dL (12.0-16.0) L 06/24/24 04:29
Hct 26.1 % (37.0-47.0) L 06/24/24 04:29
Plt Count 282 10^3/uL (130-400) 06/24/24 04:29
PT 30.3 Sec (11.4-14.6) H 06/24/24 04:28
INR 2.90 06/24/24 04:28
Sodium 139 mmol/L (135-145) 06/24/24 04:28
Potassium 4.4 mmol/L (3.5-5.1) 06/24/24 04:28
BUN 77 mg/dl (7-17) H 06/24/24 04:28
Creatinine 2.3 mg/dL (0.6-1.0) H 06/24/24 04:28
Glucose 81 mg/dl (70-99) 06/24/24 04:28
Troponins
06/21/24 06/22/24 06/22/24
18:20 04:35 10:34
Troponin I 1.260 H* 19.500 H* 20.700 H*
06/22/24 06/22/24 06/23/24
17:49 23:38 05:12
Troponin I 16.700 H* 12.900 H* 9.940 H*
06/23/24
11:45
Troponin I Cancelled
Vital Signs and I&O:
Vital Signs
Temp Pulse Resp BP Pulse Ox
97.9 F 58 15 113/39 100
06/24/24 11:51 06/24/24 08:22 06/24/24 05:38 06/24/24 08:22 06/24/24 05:38
Vital Signs
Temp Pulse Resp BP Pulse Ox
97.9 F 58 15 113/39 100
06/24/24 11:51 06/24/24 08:22 06/24/24 05:38 06/24/24 08:22 06/24/24 05:38
Intake & Output
06/22/24 06/23/24 06/24/24 06/25/24
06:59 06:59 06:59 06:59
Intake Total 7.6 / 7.6 120 / 120 480 / 480
Output Total 550 / 550 900 / 900
Balance -542.4 / -542.4 -780 / -780 480 / 480
Physical Exam
Physical Exam
GEN: No distress, awake, Ox3
HEENT: supple, anicteric, mmm
LUNGS: CTA, no wheezes/rales
CV: Reg, S1/S2, 2/6 syst LSB, no gallop
ABD: soft, BS+, NT/ND
EXT: No edema
NEURO: Gross non-focal
SKIN: No rash
[2024-06-24] MEDS: LOPRESSOR PO (13:02)
--- NOTE | 2024-06-24 13:38 | W.PN.HOSP.TC ---
Today's Communication/Plan
-
Dispo planning
Assessment / Plan
Assessment / Plan
NAD
Scleral Anicteric
MMM
No JVD
CTABL
RRR, S1/S2
Soft, NT, ND, BS+
Warm, Dry
AAOx3
Calm
Heart failure reduced EF, EF initially 30 to 35% now 35 to 40%
Hold Lasix, cardiology plans to resume tomorrow
Depending on discharge renal function may be able to tolerate GDMT such as SGLT2 inhibitor, ELENI I, ARB, nephrolysin inhibitor, MRA
If heart rate tolerates will be on beta-blockade
NSTEMI
Trops peaked at 20.7
Cardiology following
2D echocardiogram repeat was completed with findings of anterior/anteroseptal/inferior septal and anterolateral hypokinesis
Cardiology discussed with family and Ms. Hewitt at this time holding off on left heart catheterization due to renal function being 2.5.
Will medically manage per cardiology's recommendation
Per cardiology she will speak with her outpatient ultimate hoops scoreboard operator about potential left heart catheterization as she has declined wanting 1 at this time
A-fib paroxysmal, back in sinus rhythm
INR 2.9, per pharmacy go ahead resume Coumadin at 1 mg as on Amio, repeat INR tomorrow morning will need to be followed up closely as outpatient
Currently on 200 mg Amio 3 times daily, per cardiology decreased to 200 mg amiodarone 2 times a day starting tomorrow
JENNIFER on CKD with a unclear baseline creat, coming down to 0.3
Hold Lasix today, cardiology plans to resume tomorrow
Monitor renal function
Avoid nephrotoxins hypotension
Monitor urinary output
If getting worse will consult Nephrology
COPD
Weaned off of BiPAP
Without evidence of acute bronchospasm on exam therefore currently not on steroids continue breathing treatment
CAD s/p CABG
Continue statin beta-gerri
Hyperlipidemia
Statin
PT/OT consulted
Discharge planning
Downgrade telemetry
Anticipated Discharge: Within 24 hours
Subjective/Interval History
-
Date of Service: June 24, 2024
Seen and examined. No new complaints. No acute overnight events.
Asking when she would be going home
Kidney function slowly improving down to 2.3
Objective Data
-
Labs:
Laboratory Results
06/24/24 06/24/24
04:28 04:29
WBC 10.4
Hgb 8.6 L
Hct 26.1 L
Plt Count 282
PT 30.3 H
INR 2.90
Sodium 139
Potassium 4.4
Chloride 104
Carbon Dioxide 27
BUN 77 H
Creatinine 2.3 H
Glucose 81
Calcium 8.8
Vital Signs:
Vital Signs
Temp Pulse Resp BP Pulse Ox
97.9 F 61 14 116/40 97
06/24/24 11:51 06/24/24 13:00 06/24/24 13:00 06/24/24 12:00 06/24/24 13:00
I&O
06/23/24 06/24/24 06/25/24
06:59 06:59 06:59
Intake Total 120 / 120 480 / 480
Output Total 900 / 900
Balance -780 / -780 480 / 480
--- NOTE | 2024-06-24 15:05 | PTCARENOTE ---
Called [facility] to give report, receiving RN currently off the floor. Awaiting call back.
--- NOTE | 2024-06-24 16:51 | W.PN.UPDATE ---
Update Note
Progress Note Update
Patient is stable from a cardiac standpoint. I called [facility] and made cardiology f/u appt and coordinated with [facility] follow up. E-scribed new Rx for amiodarone and Toprol XL. Outlined medication changes in d/c instructions. TT to CM to
request VN which can't be done right now because Vn agencies closed, but then informed that patient now willing to stay another day. Will follow up in the AM.
[2024-06-24] MEDS: COUMADIN 1 MG PO (16:55)
--- NOTE | 2024-06-24 17:09 | PTCARENOTE ---
Pt downgraded to Tele; Pt informed of being moved to 3 - adamantly refused to moved and requested to go home. Provider notified of Pt request; PT and cardiology still needed to sign off. PT evaluated patient - VN recommended. Pt requesting to
leave AMA. Family arrived to room and convinced Pt to move rooms and stay the night. Report given to [facility] and Pt transferred to [id number].
--- NOTE | 2024-06-24 17:55 | PTCARENOTE ---
patient transferred to [facility] via stretcher, denies complaints, no sob, independent, vss, telemetry maintained, oriented to new room and call suazo, daughter at bedside, will continue to monitor.
[2024-06-25 03:15] VITALS: BP 118/46
[2024-06-25 05:40] LABS: Hematocrit 27.3 % (37.0-47.0); Hemoglobin 8.9 g/dL (12.0-16.0); Mean Corp Hgb Conc. 32.6 g/dL (33.0-37.0); Mean Corpuscular Hgb 28.9 pg (27.0-31.0); Mean Corpuscular Volume 88.6 fL (81.0-99.0); Mean Platelet Volume 11.1 fL (7.4-10.4); Platelet Count 284 10^3/uL (130-400); Red Blood Cell Count 3.08 10^6/uL (4.20-5.40); Red Cell Dist. Width 13.2 % (11.5-14.5); White Blood Cell Count 8.9 10^3/uL (4.8-10.8)
[2024-06-25 05:51] LABS: INR 2.34; PT 26.1 Sec (11.4-14.6)
[2024-06-25 06:00] VITALS: BMI 21.3
[2024-06-25 06:02] LABS: Blood Urea Nitrogen 70 mg/dl (7-17); Calcium 8.8 mg/dl (8.4-10.2); Carbon Dioxide 27 mmol/L (22-30); Chloride 105 mmol/L (98-107); Estimated Creatinine Clearance 18 ml/min; Glucose 80 mg/dl (70-99); Potassium 4.5 mmol/L (3.5-5.1); Sodium 140 mmol/L (135-145); eGFR 21.57
[2024-06-25 07:41] VITALS: BP 134/45
[2024-06-25] MEDS: PACERONE 200 MG PO (09:37)
[2024-06-25] MEDS: LIPITOR 20 MG PO (09:37)
[2024-06-25] MEDS: TOPROL XL 25 MG PO (09:37)
--- NOTE | 2024-06-25 10:20 | CM ---
Patient stable for d/c today
Therapy rec home PT, met w/ patient, shared she does not need HH.
Daughter will transport
IMM verbally reviewed, copy given to patient, copy on chart
Plan: Home, no needs
[2024-06-25 11:28] VITALS: BP 105/51
--- NOTE | 2024-06-25 12:10 | W.PN.CARDCBS ---
Today's Communication / Plan
-
ok for D/C
Cont Amiodarone 200mg po bid x 1 month, then 200mg daily
Lasix 40mg daily
Toprol 25mg daily
Atorvastatin 20mg daily
Coumadin 1mg daily
Impression / Plan
-
.
Primary development mgr is Dr. Josue Almendarez
Impression:
Presents with decompensated congestive heart failure and there may be a component of COPD exacerbation
CM EF 35-40%
Mod MR
Possible NSTEMI trop now 19 in setting of rapid AFib.
Rapid AFib
Elevated troponin
History of COPD
Chronic LBBB
There is notation that in 2014 she developed 'new LBB' which prompted coronary angiography finding widely patent grafts
CAD s/p CABG Nov 2005
CASEY to LAD and sequential SVG�OM1/2
Hx bio AVR with mod to severe stenosis by recent echo peak/mean grad 64/40 mmHg, mild to mod AR
Carotid arterial disease status post prior carotid endarterectomy on the left in 2009.
DM-2
Hypertension
Dyslipidemic but noted to be statin intolerant
Echo June 20, 2024: Globally and severely reduced left ventricular systolic function with ejection fraction of 30 to 35%. There is mild to moderate mitral regurgitation. Tissue aortic valve mean gradient of 4 mmHg with mild aortic insufficiency.
There is moderate tricuspid regurgitation. There is markedly elevated estimated pulmonary artery pressure at 65 to 70 mmHg.
Echo Jun 22 2024: Normal left ventricular chamber size. Mild concentric left ventricular hypertrophy. Mildly reduced left ventricular systolic function. Anterior, anteroseptal, inferoseptal and anterolateral hypokinesis. Left ventricular ejection
fraction is 35-40%. Moderate mitral regurgitation. S/p aortic valve replacement with peak/mean gradients across the aortic valve of 64/40 mmHg respectively. Mild to moderate aortic regurgitation.
Mild tricuspid regurgitation. Estimated pulmonary artery pressure of 32 mmHg. Compared to the previous Jun 20 2024 which was reviewed, echo EF was 30-35% at that time and AV was poorly visualized
Plan:
Troponin peaked at 20 s/p rapid aFib episode. Her also passed days before admit. Long discussion regarding her options and for left heart cath and she and daughter decline this. She is concerned about her renal risks.
INR down to 2.3. Restart coumadin
Urgent echo to reeval EF June 22 with stable EF 35-40% with mod MR and s/p AVR with mod to severe stenosis with peak/mean AV grad of 64/40 mmHg respectively, mild to mod AR.
Cont medical therapy for now for her NSTEMI, CM and bioAVR stenosis
Reviewed available records from [facility]. Again, she does not desire a cardiac cath at this time. We did discuss that her valve is worsening and gradients are increased.
Diuresis has been held and creatinine is improving and is down to 2.2. discharge on Lasix 40mg daily
Hemoglobin stable at 8.9.
Cr baseline approx 1.6-1.8.
Bp remains stable.
Chronic obstructive pulmonary disease tx as per pulm. Outpt follow up chest xray. Pulm signed off.
Progress Note - [employer]
Subjective
Date of Service: June 25, 2024
no chest pains
Objective
Labs:
06/25/24 05:16
06/25/24 05:16
Labs
Hgb 8.9 g/dL (12.0-16.0) L 06/25/24 05:16
Hct 27.3 % (37.0-47.0) L 06/25/24 05:16
Plt Count 284 10^3/uL (130-400) 06/25/24 05:16
PT 26.1 Sec (11.4-14.6) H 06/25/24 05:16
INR 2.34 06/25/24 05:16
Sodium 140 mmol/L (135-145) 06/25/24 05:16
Potassium 4.5 mmol/L (3.5-5.1) 06/25/24 05:16
BUN 70 mg/dl (7-17) H 06/25/24 05:16
Creatinine 2.2 mg/dL (0.6-1.0) H 06/25/24 05:16
Glucose 80 mg/dl (70-99) 06/25/24 05:16
Troponins
06/22/24 06/22/24 06/23/24
17:49 23:38 05:12
Troponin I 16.700 H* 12.900 H* 9.940 H*
06/23/24
11:45
Troponin I Cancelled
Vital Signs and I&O:
Vital Signs
Temp Pulse Resp BP Pulse Ox
97.8 F 91 14 105/51 96
06/25/24 11:28 06/25/24 11:28 06/25/24 11:28 06/25/24 11:28 06/25/24 11:28
Vital Signs
Temp Pulse Resp BP Pulse Ox
97.8 F 91 14 105/51 96
06/25/24 11:28 06/25/24 11:28 06/25/24 11:28 06/25/24 11:28 06/25/24 11:28
Intake & Output
06/23/24 06/24/24 06/25/24 06/26/24
06:59 06:59 06:59 06:59
Intake Total 120 / 120 480 / 480
Output Total 900 / 900
Balance -780 / -780 480 / 480
Physical Exam
Physical Exam
GEN: No distress, awake, Ox3
HEENT: supple, anicteric, mmm
LUNGS: CTA, no wheezes/rales
CV: Reg, S1/S2, 2/6 syst LSB, no gallop
ABD: soft, BS+, NT/ND
EXT: No edema
NEURO: Gross non-focal
SKIN: No rash
--- NOTE | 2024-06-25 12:17 | W.PN.HOSP.TC ---
Today's Communication/Plan
-
Discharge home
Outpatient cardiology follow-up
Discussed at bedside and in length that she needs to closely monitor INR as she was started on amiodarone and in the 2 medications can interact causing a supratherapeutic INR
Discharged on 2 mg Coumadin. Even sent a [place] connect message to Ingrid Mir, DO her PCP on 06/25 at 934am
More than 30 minutes spent in discharge including
Final examination of the patient
Summarizing hospital stay
Instructions for continuing care to all relevant caregivers
Preparation of discharge records, prescriptions, and referral forms
Total time spent (in minutes): 42min
Assessment / Plan
Assessment / Plan
NAD
Scleral Anicteric
MMM
No JVD
CTABL
RRR, S1/S2
Soft, NT, ND, BS+
Warm, Dry
AAOx3
Calm
Heart failure reduced EF, EF initially 30 to 35% now 35 to 40%
Resume p.o. Lasix today
Depending on discharge renal function may be able to tolerate GDMT such as SGLT2 inhibitor, ELENI I, ARB, nephrolysin inhibitor, MRA
If heart rate tolerates will be on beta-blockade
NSTEMI
Trops peaked at 20.7
Cardiology following
2D echocardiogram repeat was completed with findings of anterior/anteroseptal/inferior septal and anterolateral hypokinesis
Cardiology discussed with family and Ms. Hewitt at this time holding off on left heart catheterization due to renal function being 2.5.
Will medically manage per cardiology's recommendation
Per cardiology she will speak with her outpatient in store representative about potential left heart catheterization as she has declined wanting 1 at this time
A-fib paroxysmal, back in sinus rhythm
INR 2.9, per pharmacy go ahead resume Coumadin at 1 mg as on Amio, repeat INR tomorrow morning will need to be followed up closely as outpatient
Currently on 200 mg Amio 3 times daily, per cardiology decreased to 200 mg amiodarone 2 times a day starting tomorrow
JENNIFER on CKD with a unclear baseline creat, coming down to 0.3
Hold Lasix today, cardiology plans to resume tomorrow
Monitor renal function
Avoid nephrotoxins hypotension
Monitor urinary output
If getting worse will consult Nephrology
COPD
Weaned off of BiPAP
Without evidence of acute bronchospasm on exam therefore currently not on steroids continue breathing treatment
CAD s/p CABG
Continue statin beta-gerri
Hyperlipidemia
Statin
PT/OT Home health
Discharge home today
Cleared by cardiology
Anticipated Discharge: Today
Subjective/Interval History
-
Date of Service: June 25, 2024
Seen and examined. No new complaints. No acute overnight events
Objective Data
-
Labs:
Laboratory Results
06/25/24
05:16
WBC 8.9
Hgb 8.9 L
Hct 27.3 L
Plt Count 284
PT 26.1 H
INR 2.34
Sodium 140
Potassium 4.5
Chloride 105
Carbon Dioxide 27
BUN 70 H
Creatinine 2.2 H
Glucose 80
Calcium 8.8
Vital Signs:
Vital Signs
Temp Pulse Resp BP Pulse Ox
97.8 F 91 14 105/51 96
06/25/24 11:28 06/25/24 11:28 06/25/24 11:28 06/25/24 11:28 06/25/24 11:28
I&O
06/24/24 06/25/24 06/26/24
06:59 06:59 06:59
Intake Total 480 / 480
Balance 480 / 480
--- NOTE | 2024-06-25 12:19 | W.DCSUMMARY ---
Discharge Summary
Discharge Data
Date of Admission: 06/20/24
Date of Discharge: 06/25/24
-
Pending Results: No
Hospital Course
83-year-old female with a past medical history of A-fib currently in NSR, valvular heart disease, CAD, hypertension, hyperlipidemia, DM type II, and history of COPD/asthma
Presented for shortness of breath x 3 days requiring supplemental oxygen and eventually transition to BiPAP due to continued tachypnea for which we were able to wean off BiPAP with the help of diuretics as was treated for heart failure with reduced
EF. Was admitted to ICU found to have hypertensive crisis requiring nitroglycerin drip which was further complicated by hypotension. Nitroglycerin drip was discontinued and eventually required Levophed briefly for circulatory shock which was
eventually weaned off. Was found to have a troponin of 1.66 with continued elevation in troponin therefore 2D echocardiogram was completed which demonstrated an EF of 30 to 35% and global hypokinesis. Cardiology discussed potentially left heart
catheterization however declined due to renal function being high. Was treated for heart failure with IV diuretics that was eventually held. Additionally went into rapid atrial fibrillation requiring IV amnio load that was transition to oral
amiodarone and Toprol 25 mg daily. On Coumadin for atrial fibrillation noted to have supratherapeutic INR after initiating amiodarone therefore dose was adjusted and will need continued follow-up with outpatient cardiology and PCP for continued INR
checks and adjustment in Coumadin dosing to prevent any further subtherapeutic or supratherapeutic levels. Was evaluated by physical therapy recommended home health.
2d echo
CONCLUSIONS
Normal left ventricular chamber size. Severely reduced left ventricular
systolic function. Global hypokinesis. Mild concentric left ventricular
hypertrophy. Left ventricular ejection fraction is 30-35%.
Normal right ventricular size and function.
Mitral valve opens normally. Thickened mitral valve leaflets. Mild-moderate.,
moderate mitral regurgitation. Mitral annular calcification.
H/o of aortic valve replacement with mean of 4mmHg. Mild aortic regurgitation.
Tricuspid valve opens normally. Moderate tricuspid regurgitation. Estimated
pulmonary artery pressure of 65-70 mmHg. Assuming a right atrial pressure of 3
mmHg.
Repeat 2d echo as Troponin started increasing
CONCLUSIONS
Normal left ventricular chamber size. Mild concentric left ventricular
hypertrophy. Mildly reduced left ventricular systolic function. Anterior,
anteroseptal, inferoseptal and anterolateral hypokinesis. Left ventricular
ejection fraction is 35-40%.
Moderate mitral regurgitation.
S/p aortic valve replacement with peak/mean gradients across the aortic valve
of 64/40 mmHg respectively. Mild to moderate aortic regurgitation.
Mild tricuspid regurgitation. Estimated pulmonary artery pressure of 32 mmHg.
Compared to the previous Jun 20 2024 which was reviewed, echo EF was 30-35% at
that time and AV was poorly visualized
Chest Ultrasound
Findings/impression:
Minimal fluid in the inferior right hemithorax.
Renal Ultrasound
IMPRESSION: No evidence of renal collecting system dilatation bilaterally.
Confirmation of bilateral ureteral jets.
Mildly complex small parapelvic right renal cyst measuring 1.9 cm in greatest dimension. Suggest short-term follow-up renal ultrasound, perhaps in 6 months, to confirm stability.
Discharge Plan
-
Patient Disposition: Home with Home Care
Discharge Diagnosis/Procedures: Heart failure
Rapid afib
NStemi
circulatory shock
Diet: 2 Gram Sodium and Restrict fluids to 48 oz
Blood Work: cbc and bmp in 5days
inr check in 1 day with pcp or rubber and p[facility]
Other Services: [facility]
Specialty Instructions: Weigh Daily- Call MD for wt gain/loss 3 lbs overnight/5 lbs in 1 week
Activity Restrictions/Additional Instructions:
Presented for shortness of breath x 3 days requiring supplemental oxygen and eventually transition to BiPAP due to continued tachypnea for which we were able to wean off BiPAP with the help of diuretics as was treated for heart failure with reduced
EF. Was admitted to ICU found to have hypertensive crisis requiring nitroglycerin drip which was further complicated by hypotension. Nitroglycerin drip was discontinued and eventually required Levophed briefly for circulatory shock which was
eventually weaned off. Was found to have a troponin of 1.66 with continued elevation in troponin therefore 2D echocardiogram was completed which demonstrated an EF of 30 to 35% and global hypokinesis. Cardiology discussed potentially left heart
catheterization however declined due to renal function being high. Was treated for heart failure with IV diuretics that was eventually held. Additionally went into rapid atrial fibrillation requiring IV amnio load that was transition to oral
amiodarone and Toprol 25 mg daily. On Coumadin for atrial fibrillation noted to have supratherapeutic INR after initiating amiodarone therefore dose was adjusted and will need continued follow-up with outpatient cardiology and PCP for continued INR
checks and adjustment in Coumadin dosing to prevent any further subtherapeutic or supratherapeutic levels. Was evaluated by physical therapy recommended home health.
2d echo
CONCLUSIONS
Normal left ventricular chamber size. Severely reduced left ventricular
systolic function. Global hypokinesis. Mild concentric left ventricular
hypertrophy. Left ventricular ejection fraction is 30-35%.
Normal right ventricular size and function.
Mitral valve opens normally. Thickened mitral valve leaflets. Mild-moderate.,
moderate mitral regurgitation. Mitral annular calcification.
H/o of aortic valve replacement with mean of 4mmHg. Mild aortic regurgitation.
Tricuspid valve opens normally. Moderate tricuspid regurgitation. Estimated
pulmonary artery pressure of 65-70 mmHg. Assuming a right atrial pressure of 3
mmHg.
Repeat 2d echo as Troponin started increasing
CONCLUSIONS
Normal left ventricular chamber size. Mild concentric left ventricular
hypertrophy. Mildly reduced left ventricular systolic function. Anterior,
anteroseptal, inferoseptal and anterolateral hypokinesis. Left ventricular
ejection fraction is 35-40%.
Moderate mitral regurgitation.
S/p aortic valve replacement with peak/mean gradients across the aortic valve
of 64/40 mmHg respectively. Mild to moderate aortic regurgitation.
Mild tricuspid regurgitation. Estimated pulmonary artery pressure of 32 mmHg.
Compared to the previous Jun 20 2024 which was reviewed, echo EF was 30-35% at
that time and AV was poorly visualized
Chest Ultrasound
Findings/impression:
Minimal fluid in the inferior right hemithorax.
Renal Ultrasound
IMPRESSION: No evidence of renal collecting system dilatation bilaterally.
Confirmation of bilateral ureteral jets.
Mildly complex small parapelvic right renal cyst measuring 1.9 cm in greatest dimension. Suggest short-term follow-up renal ultrasound, perhaps in 6 months, to confirm stability.
Instructions: *PCP/Other [employer] Heart Failure Instructions
Referrals:
Lamine Almendarez MD [Affiliate] - 07/06/24 1:30 pm (You have an appt to see Dr. Almendarez on 07/06/24 at 1:30 PM. )
Ingrid Mir DO [Family Provider] -
Sruthi Wilcox MD [Active] - in two to three weeks
Additional Discharge Medication Instructions: -Resume your usual dose of warfarin (Coumadin) 1 mg daily on 06/24/24. Cardiology team at [facility] called Dr. Almendarez's office to update the Coumadin Clinic about your INRs and
Coumadin dosing. You are scheduled for a Coumadin Clinic visit 06/29/24.
-Continue taking Lasix (furosemide) 20 mg twice a day.
-STOP taking Lopressor (metoprolol tartrate), it has been replaced with Toprol XL (metoprolol succinate) 25 mg once a day.
-Start taking amiodarone 200 mg twice a day for 2 weeks (until 07/11/24) and then decrease to 200 mg once a day thereafter.
Prescriptions:
New
amiodarone 200 mg Tablet
200 mg PO BID Qty: 28 0RF
metoprolol succinate 25 mg Tablet Extended Release 24 Hr
25 mg PO DAILY Qty: 30 6RF
amiodarone 200 mg tablet
200 mg PO DAILY Qty: 30 6RF
warfarin [Jantoven] 1 mg Tablet
2 mg PO QPM Qty: 10 0RF
nitroglycerin 0.4 mg tablet, sublingual
0.4 mg sublingual Q5M PRN (Reason: chest pain) Qty: 25 3RF
Continued
atorvastatin 20 mg Tablet
20 mg PO DAILY
furosemide 20 mg Tablet
20 mg PO BID
albuterol sulfate 90 mcg/actuation Hfa Aerosol Inhaler
2 puff INHALATION R DAILYPRN PRN (Reason: SOB)
fluticasone propionate 50 mcg/actuation [place],Suspension
1 spray INTRANASAL DAILY
PreserVision AREDS 2,148 mcg-113 mg-45 mg-17.4mg Tablet
1 tab PO BID
Discontinued
amoxicillin 500 MG capsule
2,000 mg PO PRN PRN (Reason: 1 hr before dental work)
warfarin [Coumadin] 5 mg Tablet
5 mg PO DAILY
metoprolol tartrate 50 mg Tablet
50 mg PO BID
Discharge Orders:
Discharge Patient (As Directed); Ordered 06/25/24
Ordered By: Bhargav Hare
Discharge Date and Time
Discharge Date/Time: 06/25/24 11:57
Print Language: GERMAN
== END 2024-06-25 11:57 | disposition home or self-care (01) | DRG 280 ==
LOC: 3 WEST ACU 14:28
PROVIDERS: Nurse Practitioner Family; Physician Assistant Medical; ADMITTING PHYSICIAN Internal Medicine; ATTENDING PHYSICIAN Hospitalist; CONSULT PHYSICIAN Internal Medicine Cardiovascular Disease; CONSULT PHYSICIAN Internal Medicine Critical Care Medicine; EMERGENCY PHYSICIAN Student in an Organized Health Care Education/Training Program; FAMILY PHYSICIAN Family Medicine
DX: I13.0 Hypertensive heart and chronic kidney disease with heart failure and stage 1 through stage 4 chronic kidney disease, or unspecified chronic kidney disease (principal); I50.21 Acute systolic (congestive) heart failure; I21.4 Non-ST elevation (NSTEMI) myocardial infarction; N17.9 Acute kidney failure, unspecified; R57.9 Shock, unspecified; E87.21 Acute metabolic acidosis; E87.3 Alkalosis; I16.9 Hypertensive crisis, unspecified; Z11.52 Encounter for screening for COVID-19; E78.00 Pure hypercholesterolemia, unspecified; E11.9 Type 2 diabetes mellitus without complications; Z79.84 Long term (current) use of oral hypoglycemic drugs; Z79.01 Long term (current) use of anticoagulants; I48.0 Paroxysmal atrial fibrillation; J44.89 Other specified chronic obstructive pulmonary disease; I25.10 Atherosclerotic heart disease of native coronary artery without angina pectoris; Z60.2 Problems related to living alone
CPT/HCPCS: 93308; 36600; 71045; 71046; 76604; 76770; 80048; 80053; 82805; 83036; 83605; 83735; 83880; 84100; 84484; 85025; 85027; 85610; 87040; 87502; 87811; 93005; 93306; 93321; 93325; 94640; 94660; 96365; 96366; 96367; 96375; 97116; 97162; 99291; J1160; Q9950